=== PATIENT | female | born 1980 | race Caucasian/White ===

== ENCOUNTER 2025-06-08 12:59 | Outpatient (AMB) | payer MEDICARE, SELFPAY ==
[2025-06-08 13:16] VITALS: BP 98/60; PULSE 100; RESP 16; TEMP 36.3; BMI 16.1
--- NOTE | 2025-06-08 13:16 | A.OFFPC_ITS ---
Vital Signs 06/08/25 13:16 Height 5 ft 3 in Weight 91 lb BMI 16.1 BP 98/60 Blood Pressure Location Lt brachial Position Sitting Respiration 16 Pulse 100 Pulse Source Palpation Temp 97.3 F Temp Source Temporal Artery Scan Intake Visit Reasons: reestablish care Chief Of Service Required: No Accompanied by: Mother Allergies shellfish derived (shellfish) Allergy (Severe, Verified 06/08/25 13:25) dizzy, nausea, flushing, tachycardia egg Allergy (Intermediate, Verified 06/08/25 13:25) flushing, lip itching, tachycardia gluten Allergy (Intermediate, Verified 06/08/25 13:25) flushing, GI upset iodine Allergy (Intermediate, Verified 06/08/25 13:25) flushing, GI tract burning Milk Containing Products (Dairy) Allergy (Intermediate, Verified 06/08/25 13:25) flushing, GI upset nuts Allergy (Intermediate, Uncoded 06/08/25 13:25) flushing, lump in throat Medication List - Last Reconciled 06/08/25 by Kaelyn Vanegas MD ascorbate calcium (vitamin C) 500 mg PO DAILY epinephrine (EpiPen) 0.3 mg IM Q10M PRN vitamin D3-vitamin K2 125 mcg (5,000 unit)-100 mcg caps PO DAILY Tobacco use date assessed: 06/08/25 Dental Screening Dental Screen Date: 06/08/25 Did you have a dental visit in the last 12 months?: No Did you have a dental problem in the last 6 months where you did not have access to dental care?: No Was dental information given to patient?: Patient has dentist HPI HPI Comments History of Present Illness Details The patient is a 45-year-old female presenting with the re-establishment of care for management of multiple existing conditions. Telomere Disorder: Family-related disorder will be seeing specialist in [place] if she gets transportation, mother was recently diagnosed Fibroadenoma: Right breast fibroadenoma, also has another mass on right breast- states will be trying to schedule with provider who relocated. Endometrial Polyp: Planned biopsy of polyp to be done by Dr. Anna Fermin's Danlos-stable POTS-unchanged Anemia: Chronic iron deficiency; oral iron ineffective with GI intolerance. Has poor po intake. Dizziness/Headache: Persistent symptoms for several months, notes also occasional sensation that she is off balance. Also notes occipital headache and occasional band like headache, endorses photophobia and vision changes. Vitamin A Deficiency: due for repeat labs Surgical History: - Biopsy of fibroadenoma Social History: - Transportation: Lacks transport, impac ting ability to attend medical appointments - Nutrition: High intake of turkey, chic mattie, difficulty consuming liver for improved iron status - Activity level: Functions limited by d izziness and anemia Review of Systems - General: Reports dizziness, fatigue - Gastrointestinal: Reports bloating, di etary challenges - Neurologic: Reports persistent dizzine ss, visual distortion Physical Exam General: NAD Chest: CTABL. Card: normal s1, s2 Abd: SNTND, +BS Extremities: no edema Neuro: AOX3 Msk: right hand- 3rd digit, at base notable bony prominence compared to previous, no tenderness on exam Assessment and Plan 1. Telomere Disorder - Monitor systemic effects. 2. Anemia - Improve dietary intake; consider IV ir on per recommendations from cemetery counselor. 3. Dizziness with photophobia, vision di sturbances, headache - Obtain MRI, follow up with ophthalmolo gist 4. 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 Protein Calorie Malnutrition- check i josephine studies, vitamin levels, prealbumin 7. Discomfort of finger of right hand-ch ronan xray, monitor Follow up in 3-4 months Patient Instructions - Follow up with specialists as planned - Seek transportation assistance for mickey ointments. - Adjust dietary intake for iron - Monitor for symptoms of anemia or dizz iness. [facility] Medical History (Updated 06/08/25 @ 17:17 by Kaelyn Vanegas MD) Short telomeres for age determined by combined flow cytometry and fluorescence in situ hybridization (FISH) technique Right hand pain Vision changes Photophobia Unilateral headache Occipital headache Dizziness Protein calorie malnutrition Vitamin D deficiency Fibroadenoma Anemia POTS (postural orthostatic tachycardia syndrome) Osteoporosis Mallory-Danlos syndrome Social History Housing: House Patient Tobacco Use Status: Never used Tobacco e-Cigarette/Vaping Use: Never Used service: No Current occupational status: disabled Questionnaire AUDIT C Alcohol Use Questionnaire (AUDIT-C) 1. How often do you have a drink containing alcohol?: Never 3. How often do you have six or more drinks on one occasion?: Never Total Score: 0 Physical exam (Primary Care) Vital Signs: Last Vital Signs Temp 97.3 F 06/08/25 13:16 Pulse 100 06/08/25 13:16 Resp 16 06/08/25 13:16 BP 98/60 06/08/25 13:16 BMI result Body Mass Index 16.1 Tobacco/Smoking Status: Tobacco use Status Tobacco use date assessed 06/08/25 06/08/25 13:27 Patient Tobacco Use Status Never used Tobacco 06/08/25 13:27 e-Cigarette/Vaping Use Never Used 06/08/25 13:27 Coding Level of Care Code Est Pt Level 4 (52817) Complex EM visit Add On G2211 Diagnoses Protein-calorie malnutrition, unspecified severity E46 Protein-calorie malnutrition severity: unspecified severity Iron deficiency anemia secondary to inadequate dietary iron intake D50.8 Anemia type: iron deficiency Iron deficiency anemia type: inadequate dietary iron intake 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 POTS (postural orthostatic tachycardia syndrome) G90.A Photophobia H53.149 Vision changes H53.9 Dizziness R42 Assessment & Plan Assessment & Plan (1) Protein calorie malnutrition: Code(s): E46 - Unspecified protein-calorie malnutrition Category: Medical Qualifiers: Protein-calorie malnutrition severity: unspecified severity Qualified Code(s): E46 - Unspecified protein-calorie malnutrition (2) Anemia: Code(s): D64.9 - Anemia, unspecified Category: Medical Qualifiers: Anemia type: iron deficiency Iron deficiency anemia type: inadequate dietary iron intake Qualified Code(s): D50.8 - Other iron deficiency anemias (3) Mallory-Danlos syndrome: Code(s): 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 - Mallory-Danlos syndrome, unspecified Category: Medical (4) POTS (postural orthostatic tachycardia syndrome): Code(s): G90.A - Postural orthostatic tachycardia syndrome [POTS] Category: Medical (5) Photophobia: Code(s): H53.149 - Visual discomfort, unspecified Category: Medical (6) Vision changes: Code(s): H53.9 - Unspecified visual disturbance Category: Medical (7) Dizziness: Code(s): R42 - Dizziness and giddiness Category: Medical Plan - Check cbc, cmp, nutritional deficiency labs - obtain brain MRI r/o posterior circulation etiology due to persistent symptoms and vision changes Orders: Orders Comprehensive Met. Panel Today D64.9 - Anemia, unspecified, E46 - Unspecified protein-calorie malnutrition, Q79.60 - Mallory-Danlos syndrome, unspecified Complete Blood Count Auto Diff Today D64.9 - Anemia, unspecified, E46 - Unspecified protein-calorie malnutrition, G90.A - Postural orthostatic tachycardia syndrome [POTS], Q79.60 - Mallory-Danlos syndrome, unspecified IRON PROFILE Today D64.9 - Anemia, unspecified, E46 - Unspecified protein- calorie malnutrition, G90.A - Postural orthostatic tachycardia syndrome [POTS], Q79.60 - Mallory-Danlos syndrome, unspecified Ferritin Today D64.9 - Anemia, unspecified, E46 - Unspecified protein-calorie malnutrition, G90.A - Postural orthostatic tachycardia syndrome [POTS], Q79.60 - Mallory-Danlos syndrome, unspecified Vitamin B12 Today E46 - Unspecified protein-calorie malnutrition, G90.A - Postural orthostatic tachycardia syndrome [POTS], Q79.60 - Mallory-Danlos syndrome, unspecified XR hand RT min 3V Today M79.641 - Pain in right hand Vitamin A Today E46 - Unspecified protein-calorie malnutrition Prealbumin Today E46 - Unspecified protein-calorie malnutrition TSH reflex Free T4 Today D64.9 - Anemia, unspecified, E46 - Unspecified protein-calorie malnutrition, G90.A - Postural orthostatic tachycardia syndrome [POTS], M81.0 - Age-related osteoporosis without current pathological fracture, Q79.60 - Mallory-Danlos syndrome, unspecified Folate Today D64.9 - Anemia, unspecified, E46 - Unspecified protein-calorie malnutrition, G90.A - Postural orthostatic tachycardia syndrome [POTS], Q79.60 - Mallory-Danlos syndrome, unspecified MR head/brain wo con Today H53.149 - Visual discomfort, unspecified, H53.9 - Unspecified visual disturbance, R42 - Dizziness and giddiness, R51.9 - Headache, unspecified Vitamin B1 Today E46 - Unspecified protein-calorie malnutrition
--- OUTSIDE RECORDS SUMMARY | 2025-06-08 16:28 | XMS_ITS | Clinical Summary ---
Author Organization [facility] Address [address] [place] [address] Care Team Providers Care Hearing Aid Specialist Name Role Phone Kaelyn Vanegas MD Primary Care Provider [phone] Social History Tobacco Use Types Packs/Day Years Used Date Smoking Tobacco: Never Assessed Comments Unknown Sex and Gender Information Value Date Recorded Sex Assigned at Not on file Legal Sex Female 9:35 AM EDT Gender Identity Not on file Sexual Orientation Not on file Plan of Treatment Health Maintenance Due Date Last Done Comments Hepatitis C Virus Screening 1978 HIV Screening 1991 DTaP/Tdap/Td Vaccines (1 - Tdap) 1997 Hepatitis B Vaccines (1 of 3 - 19+ 3-dose series) 1997 COVID-19 Vaccine ( - 2023-2 5 season) 2025 Pneumococcal Vaccine: Pediat jesusita (0-5 Years) and At-Risk Patients (6 to 49 Years) Aged Out No longer eligible b ased on patient's age to complete this topic Care Teams Hearing Aid Specialist Relationship Specialty Start Date End Date Kaelyn Vanegas MD [address] [place] [address] PCP - General Internal Medicine 06/24/24
--- OUTSIDE RECORDS SUMMARY | 2025-06-08 16:28 | XMS_ITS | Encounter Summary ---
Author Organization [facility] Address [address] [address] Phone Care Team Providers Care Investment Representative Name Role Phone Kaelyn Vanegas MD Primary Care Provider + Kayli Fulton MD Primary Care Provider + Jean Angel MD Unavailable [phone] Cat Dorsey [facility] Unavailable Encounter Details Date Type Department Care Team (Late st Contact Info) Description 11/17/2024 Transcribe Orders Virtual Department [address] [place] [address] Sandi Castillo DO [address] [place] [address] Social History Tobacco Use Types Packs/Day Years Used Date Smoking Tobacco: Never Assessed Education Answer Date Recorded Are you interested in more education? Not on luanne e 12/15/2022 Are you concerned about learning? Not on file 12/15/2022 No 12/15/2022 No 12/15/2022 Digital Access Answer Date Recorded No 01/05/2023 No 01/05/2023 Reliable internet access at home? Not on file 01/05/2023 Device with a working camera? Not on file Comments Unknown Sex and Gender Information Value Date Recorded Sex Assigned at Female 03/07/2025 12:47 PM EDT Legal Sex Female 6:16 PM EST Gender Identity Female 03/07/2025 12:47 PM EDT Sexual Orientation Straight 03/07/2025 12 :47 PM EDT documented as of this encounter Plan of Treatment Upcoming Encounters Date Type Department Care Team (Late st Contact Info) Description 06/13/2025 1:45 PM EST Office Visit [facility] [address] ASB2-2 [address] Jean Angel MD [address] [place] [address] - [place] [address] [address] [email or web address] 10/24/2025 9:00 AM EDT Blood Draw Laboratory Services, [address], [address] [address] Jean Angel MD [address] [place] [address] [email or web address] 10/24/2025 10:00 AM EDT [facility] Division of Hematologic Oncology, [address], [address] [address] Jaen Angel MD [address] [place] [address] [address] [email or web address] documented as of this encounter Visit Diagnoses Not on filedocumented in this encounter Care Teams Investment Representative Relationship Specialty Start Date End Date Kaelyn Vanegas MD [address] [place] [address] PCP - General Internal Medicine 11/04/18 03/06/25 Kayli Fulton MD [address] [place] [address] PCP - General Internal Medicine 03/07/25 Jean Angel MD [address] [place] [address] Cancer [place] - [place] [address] [address] [email or web address] Medical Oncology 03/07/25 Cat Dorsey, [address] [address] [email or web address] Computer Programmer Hematology and Oncology 05/02/25 documented as of this encounter Additional Source Comments The information contained in this document represents components of the legal health record. It is not the complete legal health record.[facility]
--- OUTSIDE RECORDS SUMMARY | 2025-06-08 16:28 | XMS_ITS | Continuity of Care Document ---
Author Organization [facility] [address] [place] [address] Phone [phone] Care Team Providers Care Water Conservationist Name Role Phone Kaelyn Vanegas M.D. 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 Onset: 07/14/2023 Cervical spine instability Kaelyn crane M.D. Onset: 07/14/2023 Osteoporosis Kaelyn Casper M.D. Ons et: 07/14/2023 Multinodular goiter Kaelyn Casper M.D. Onset: 07/14/2023 Postural orthostatic tachyca rdia moustapha Casper M.D. Onset: 07/14/2023 Irritable bowel syndrome Kaelyn Casper M.D. Onset: 07/14/2023 Dysequilibrium syndrome Kaelyn Casper M.D. Onset: 07/14/2023 Myopia Kaelyn Casper M.D. Ons et: 07/14/2023 Social History Type Date Description Comments Sex Female Sex Unknown Lives With Mother Work Status Disabled ETOH Use Denies alcohol use Tobacco Use Start: Unknown Patient has never smoked Allergies and adverse reactions Active Allergies Criticality Reaction Severity Comments Date Gluten Unable to assess criticality 07/14/2023 Povidone Iodine Unable to assess criticality 07/14/2023 Eggs Unable to assess criticality 07/14/2023 Milk-Related Compounds Unable to assess criticality 07/14/2023 Nuts Unable to assess criticality 07/14/2023 Medications Active Medications SIG Qnty Indications Order ing Provider Date Epinephrine0.3mg/0. 3ML Solution Auto-Inject Inject 0.3 MG Intramuscularly Kaelyn Lemus M.D. Vital Signs Date Vital Result Comment 07/14/2023 9:10am BP Systolic 98 mmHg BP Diastolic 64 mmHg Heart Rate 96 /min Height 62 inches 5'2 Weight 103.00 lb BMI (Body Mass Index) 18.8 kg/m2 Medical Devices Description No Information Available Encounters Type Date Location Provider Dx Diagnosis Office Visit 07/14/2023 9:15a Main Office Kaelyn Casper M.D. E04.2 Nontoxic multinodular goiter M81.0 Age-related osteopor osis w/o current pathological fracture Assessments Date Code Description Provider 07/14/2023 E04.2 Nontoxic multinodular goiter Kaelyn Casper M.D. 07/14/2023 M81.0 Osteoporosis NOS Kaelyn Fofana M.D. Plan of Treatment 07/14/2023 - Kaelyn Casper M.D.* E04.2 Nontoxic multinodular goiter * M81.0 Osteoporosis NOS Functional Status Description No Information Available Mental Status Description No Information Available Referrals Description No Information Available
--- OUTSIDE RECORDS SUMMARY | 2025-06-08 16:28 | XMS_ITS | Encounter Summary ---
Author Organization [facility] Address [address] [place] [address] Phone Care Team Providers Care Behavioral Instructor Name Role Phone Kaelyn Vanegas MD Primary Care Provider + Kayli Fulton MD Primary Care Provider + Jean Angel MD Unavailable [phone] Cat Dorsey [facility] Unavailable Reason for Referral * Consultation (Within 1 month) - Closed Specialty Diagnoses / Procedures Referred By Angus hu Referred To Contact Gastroenterology Diagnoses Liver disease Kaelyn Vanegas MD [address] [place] [address] Phone: tel: fax: Paul Gill MD, DPHIL Phone: tel: fax: mailto:[email or web address] Referral ID Status Reason Start Date Expiration Date Visits Re quested Visits Authorized [id number] Closed 11/30/2018 12/01/2019 1 1 Encounter Details Date Type Department Care Team (Latest Contact Info) Description 11/30/2018 Transcribe Orders [facility] [address] [place] [address], [address]th [place] [address] Kaelyn Vanegas MD [address] [place] [address] Liver disease (Primary Dx) Social History Tobacco Use Types Packs/Day Years [...] Description 06/13/2025 1:45 PM EST Office Visit [facility] [address] [facility] [place] [place] [address] Jean Angel MD [address] [place] [phone] [email or web address] 10/24/2025 9:00 AM EDT Blood Draw Laboratory Services, [address] [place] [address] Jean Angel MD [address] [place] [phone] [email or web address] 10/24/2025 10:00 AM EDT Office Visit [facility], Division of Hematologic Oncology, [address] [place] [address] Jean Angel MD [address] [place] [phone] [email or web address] Scheduled Referrals Name Type Priority Associated Diagnoses Order Schedule Ambulatory referral to [facility] Gastroenterology (Consult Requests Only) Outpatient Referral Routine Liver disease Ordered: 11/30/2018 documented as of this encounter Visit Diagnoses Diagnosis Liver disease- Primary Unspecified disorder of liver documented in this encounter Care Teams Behavioral Instructor Relationship Specialty Start Date End Date Kaelyn Vanegas MD [address] [place] [address] PCP - General Internal Medicine 11/04/18 03/06/25 Kayli Fulton MD [address] [place] [address] PCP - General Internal Medicine 03/07/25 Jean Angel MD [address] [place] [address] Cancer [place] [address] [address] [email or web address] Medical Oncology 03/07/25 Cat Dorsey, [address] [address] [email or web address] Senior Health Educator Hematology and Oncology 05/02/25 documented as of this encounter Additional Source Comments The information contained in this document represents components of the legal health record. It is not the complete legal health record.[facility]
--- OUTSIDE RECORDS SUMMARY | 2025-06-08 16:28 | XMS_ITS | Data Portability ---
Author Organization [place] - [facility] Address [address] [place] [address] Care Team Providers Care Gymnastic Teacher Name Role Phone ANA CANTU Primary Care Provider [phone] Assessment Encounter Date Assessment Date Assessment LastModified by Organization Details LastModified Time 03/19/2023 03/19/2023 Time On Scene with Patient: 00:50:13 Brief Overview: 43 y/o female c/o she has not been eating well the past 2 days as her mother fell, and her mom usually cooks for her so pt states she has not been eating. pt ate small amount of rice today, she is tolerating po fluids. no fever, nausea, vomiting or diarrhea. pt reports she feels tired and weak since she has not been eating. she states she is not urinating as much as normal. she denies any pain, no cough, congestion, cp, sob. pt has Gaffney and reports when she feels like this she gets IV fluids at the ER. she has chronic dizziness, intermittent palpitations, pvc's and is followed by cardiology none of these are new symptoms for her. I have reviewed the external medical records:[employer] lab/imaging reports from (hospital system/practice) ____[facility] , on (date of service) ____01/28/23____. Specifically, the data/test result/record I reviewed was: cbc, chem . Vital Signs: BP 116/66, initially tachycardic rate 110, repeat HR 98, RR 18, T 99.2, O2 97% RA Exam: 43 y/o female well appearing, alert NAD sitting on her couch. lungs: CTAB no wheezes rales or rhonchi. heart: initially tachycardic at beginning of visit, but repeat HR 98, RRR no murmur rubs or gallops. no peripheral edema. abdomen: non distended, normal bowel sounds, soft, non tender. no suprapubic tenderness, no CVA tenderness. strength is normal and equal bilaterally. gait and stance is normal. mouth: moist mucous membranes no erythema. skin: warm and dry no rashes or lesions. pt is drinking from water bottle during the visit and tolerating PO. DDx considered, with rationale: Dehydration: considered but VS stable, UA SG is 1.005, clear and yellow. pt was able to produce a full cup of urine on scene, when asked for a sample. BUN, Creat wnl. UTI: considered but she is afebrile, denies any dysuria, frequency, urgency. UA is unremarkable. Sepsis: considered but she is afebrile, VS stable, she does not appear septic. Results/ work up: Lactate: 1.83, within normal limits. Chem: Na 138, K 4.1, Cl 98, iCa 1.21, TCO2 25, glu 111, BUN <0.5, Creat 0.5, HCT 36, HGB 12.2, AnGap 20. CBC from 01/28/23 shows HCT 34.1, HGB 10.4. H&H has improved. chem from 01/28/23 shows BUN 12, Creat 0.9, Na 139, K 3.9, GFR 85. UA: SG 1.005, otherwise unremarkable. Proper Personal Protective Equipment (PPE), including gloves, eye protection and masks were donned and doffed appropriately and all equipment cleaned using approved technique with germicidal disposable wipes prior to and after care of this patient according to [facility]'s infection prevention protocols. [email or web address] Not available 03/19/2023 18:47:52 Plan of Treatment Reminders Order Date Submit Date Provider Last Modified By Organization Details Last Modified Time Details Appointments None recorded. Lab urinalysis , dipstick 2022 023 [email or web address] [facility], [address] [place] [address], [id number], 3 19:02:43 BMP + ionized calcium, serum or plasma 2022 023 CANDY Spr [facility], [address], [place], [address], 15:44:03 lactate, venous plasma 2022 023 CANDY Richards [facility], [address], [place], [address], 3 15:43:03 Referral None recorded. Procedures None recorded. Surgeries None recorded. Imaging None recorded. Medication Orders None recorded. Patient TargetsNo targets recorded. Patient Instructions Encounter Date Encounter Id Patient Instructions Last Modified By Organization Details Last Modified Time 03/19/2023 [id number] [facility] yo [facility]. We cannot always find the exact cause of your symptoms during your initial visit. Please follow up with your primary care provider or specialist within 12-24 hours to be rechecked or seek medical attention if your symptoms do not go away or get worse. If you develop any new or worsening symptoms and need after hours care, please go to nearest ER and/or call 911. If you have additional concerns or develop a change in your condition between 8am-10pm, please call [facility] at [phone] to help navigate your care. [email or web address] Not available 03/19/2023 19:02:55 Lab ResultsCG4+ iStat lac: 1.83mmol/L ref: 0.9-1.7 Lab ResultsBMP + ionized calcium, serum or plasma BUN: <5mg/dL ref: 8-26 glu: 111mg/dL ref: 70-105 crea: 0.5mg/dL ref: 0.6-1.3 Na: 138mmol/L ref: 138-146 K: 4.1mmol/L ref: 3.5-4.9 cL: 98mmol/L ref: 98-109 TCO2: 25mmol/L ref: 24-29 angap: 20mmol/L ref: 10-20 ica: 1.21mmol/L ref: 1.12-1.32 HCT: 36%pcv ref: 38-51 Hb: 12.2g/dL ref: 12-17 [email or web address] Not available 03/19/2023 15:45:03 Reason for Referral None Reported. Results Created Date Observation Date Name Description Value Unit Range Abnormal Flag Note LastModifiedBy Organization Detail LastModifiedTime 03/19/2003/19/2023 urina lysis , dipst ick Appearance clear Not Available [facility] [address] [place], [address], 03/19/2023 15:23:27 03/19/20 23 03/19/2023 urina lysis , dipst ick Color yellow Not Available [facility] [address] [place], [address], 03/19/2023 15:23:27 03/19/2003/19/2023 urina lysis , dipst ick Glucose (ref: neg) Neg Not Available [facility] [address] [place], [address], 03/19/2023 15:23:27 03/19/20 23 03/19/2023 urina lysis , dipst ick Bilirubin (ref: neg) Neg Not Available [facility] [address] [place], [address], 03/19/2023 15:23:27 03/19/20 23 03/19/2023 urina lysis , dipst ick Ketones (ref: neg Neg Not Available [facility] [address] [place], [address], 03/19/2023 15:23:27 03/19/20 23 03/19/2023 urina lysis , dipst ick Specific Theodosia (ref: 1.005 - 1.030) 1.005 Not Available [facility] [address] [place], [address], 03/19/2023 15:23:27 03/19/20 23 03/19/2023 urina lysis , dipst ick Blood (ref: neg) Neg Not Available [facility] [address] [place], [address], 03/19/2023 15:23:27 03/19/20 23 03/19/2023 urina lysis , dipst ick pH (ref: 5.0-7.0 5.0 Not Available [address], [address], 03/19/2023 15:23:27 03/19/20 23 03/19/2023 urina lysis , dipst ick Protein (ref: neg) Neg Not Available [address], [address], 03/19/2023 15:23:27 03/19/20 23 03/19/2023 urina lysis , dipst ick Urobilinogen (ref: 0.2-1) 0.2 Not Available [address], [address], 03/19/2023 15:23:27 03/19/20 23 03/19/2023 urina lysis , dipst ick Nitrites (ref: neg negati ve Not Available [address], [address], 03/19/2023 15:23:27 03/19/20 23 03/19/2023 urina lysis , dipst ick Leukocytes (ref: neg Neg Not Available [address], [address], 03/19/2023 15:23:27 03/19/20 23 03/19/2023 urina lysis , dipst ick Location [facility], [facility], [address] [place] [address], [phone] Not Available [address], [address], 03/19/2023 15:23:27 03/19/20 23 03/19/2023 BMP + IONIZ ED CALCI UM, SERUM OR PLASM A BUN <5 mg/dL 8-26 unknown Not Available [facility] [address] [place], [address], 03/19/2023 15:44:03 03/19/20 23 03/19/2023 BMP + IONIZ ED CALCI UM, SERUM OR PLASM A glu 111 mg/dL 70-105 Not Available [address], [address], 03/19/2023 15:44:03 03/19/20 23 03/19/2023 BMP + IONIZ ED CALCI UM, SERUM OR PLASM A crea 0.5 mg/dL 0.6-1. 3 Not Available [address], [address], 03/19/2023 15:44:03 03/19/20 23 03/19/2023 BMP + IONIZ ED CALCI UM, SERUM OR PLASM A Na 138 mmol/ L 138-14 6 Not Available [address], [address], 03/19/2023 15:44:03 03/19/20 23 03/19/2023 BMP + IONIZ ED CALCI UM, SERUM OR PLASM A K 4.1 mmol/ L 3.5-4. 9 Not Available [address], [address], 03/19/2023 15:44:03 03/19/20 23 03/19/2023 BMP + IONIZ ED CALCI UM, SERUM OR PLASM A cL 98 mmol/ L 98-109 Not Available [address], [address], 03/19/2023 15:44:03 03/19/20 23 03/19/2023 BMP + IONIZ ED CALCI UM, SERUM OR PLASM A TCO2 25 mmol/ L 24-29 Not Available [address], [address], 03/19/2023 15:44:03 03/19/20 23 03/19/2023 BMP + IONIZ ED CALCI UM, SERUM OR PLASM A angap 20 mmol/ L 10-20 Not Available [address], [address], 03/19/2023 15:44:03 03/19/20 23 03/19/2023 BMP + IONIZ ED CALCI UM, SERUM OR PLASM A ica 1.21 mmol/ L 1.12-1 .32 Not Available [address] [place], [address], 03/19/2023 15:44:03 03/19/20 23 03/19/2023 BMP + IONIZ ED CALCI UM, SERUM OR PLASM A HCT 36 %pcv 38-51 Not Available [address], [address], 03/19/2023 15:44:03 03/19/20 23 03/19/2023 BMP + IONIZ ED CALCI UM, SERUM OR PLASM A Hb 12.2 g/dL 12-17 Not Available [address], [address], 03/19/2023 15:44:03 03/19/20 23 03/19/2023 CG4+ ISTAT lac 1.83 mmol/ L 0.9-1. 7 Not Available [address], [address], 03/19/2023 15:43:02 Result Notes None recorded. Procedures Surgical History Date Name Laterality Status Provider Name and Address Organization Details Recorded Time 03/19/20 Venipuncture - DH completed MEENA Arthur [address] [place], [address], [place] [facility] 03/19/2023 18:41:21 Appendectomy completed MEENA Arthur [address] [place], [address], [place] [facility] 03/19/2023 15:12:56 Imaging Results None recorded. Procedure Notes None recorded. Medical Equipment None Reported. Allergies Allergen ID Allergen Name Allergen Category Reaction Reaction Severity Criticality Documentation Date Start Date Code Code System Note Provider Name and Address Organization Details Recorded Time 973510 iodine medicatio n Not available Not available Not available 03/19/2023 5933 RxNorm MEENA Arthur [address] [place], [address], [place] [facility] 15:10:30 245210 Substance with quinolone structure and antibacte rial mechanism of action (substanc e) medicatio n Not available Not available Not available 03/19/2023 19922 1999 SNOMED MEENA Arthur [address] [facility] [place], [address], [place] [facility] 15:10:40 Medications Name Sig Start Date Stop Date Status Note LastModified by Organization Details LastModified Time epinephrine 0.3 mg/0.3 mL injection, auto-injecto r INJECT 0.3 MG INTRAMUSCUL KIA ONCE active Not Available Not Available No t Available Flowflex COVID-19 Antigen Home Test kit USE DIRECTED active Not Available Not Available No t Available Vitals Date Recorded Respiratory rate Oxygen saturation Oxygen saturation in Arterial blood by Pulse oximetry Body temperature Heart rate Systolic And Diastolic Provider Name and Address Organization Details Last Updated DateTime 18 /min 97 % 97 % 99.2 [degF] 110 /min 116/66 mm[Hg] Not Available [facility] 15:14:55 Social History Question Answer Notes LastModified by Organizat ion Details LastModified Time Tobacco Smoking Status Never Smoker MEENA Arthur [address], [place], [address], [place] [facility] 03/19/2023 15:12:08 Excessive Alcohol Or Drug Use No [email or web address] Information not available 03/19/2023 Does This Patient Have A PCP? Yes [email or web address] Information not available 03/19/2023 Has The Patient Seen Their PCP In The Past 6 Months? Yes [email or web address] Information not available 03/19/2023 Is This Patient In Hospice? No Information not available 03/19/2023 What Is Your Housing Situation Today? I Have Housing Information not available 03/19/2023 Sex: Unknown Functional Status Question Answer Note LastModified by Organizat ion Details LastModified Time Do you use any illicit or recreational drugs? No Information not available 03/19/2023 What is your level of alcohol consumption? None Information not available 03/19/2023 Mental Status None recorded. Family History Relationship Description Onset Age of this Age Resolved Age Notes LastModified by Organization Details LastModified Time Father Diabetes mellitus [email or web address] Not available 03/19 15:11:34 Medical History Condition Response Diabetes N Coronary Artery Disease N CHF N Parkinson's Disease N Cancer N Stroke N Dementia N Hypothyroidism N COPD N Asthma N Depression N High Cholesterol N Rheumatoid Arthritis N Pulmonary Embolism N Hypertension N A-fib N Osteoporosis N Kidney Disease N Gynecological HistoryNo gynecological history recorded. Obstetrics History GPAL:G 0 P 0 0 0 0 Past Encounters Encounter ID Performer Location Encounter Start Date Encounter Closed Date Diagnosis/Indication Diagnosis SNOMED-CT Code Diagnosis ICD10 Code Diagnosis IMO Codes Diagnosis Note [id number] MEENA Arthur [facility] [address] [place] [address] 03/19/2023 15:08:39 03/20/2023 16:20:53 Fatigue 57507650 R53.83 Status of condition: Exacerbati on/Acute on chronic. Testing/Re sults: UA unremarkab le, SG 1.005, chem Na 138, K 4.1, BUN <5, creat 0.5, HCT 36, HGB 12.2. Discussion :pt has had poor diet the past 2 days, eating very little since her mother is not cooking for her.she is tolerating PO fluids on scene, drinking from water bottle during the visit.she denies any vomiting, diarrhea. she has chronic fatigue and chronic dizziness, these are not new symptoms.p t was able to provide a full cup of urine on scene when we asked for a sample, SG 1.005 no signs of infection, negative for bili or ketones.he r chem on scene today shows improved anemia since H&H last checked in January 2023. electrolyt es and lactate within normal limits.pt was demanding IV fluids on scene. I explained to her that her labs, urine look good. she is tolerating PO without vomiting, diarrhea. pt was still upset and stating I called you here for IV fluids. kari diane I explained to her fluids are given when medically necessary. right now her vitals are stable, chem and urine are within normal limits.I advised her to continue to drink fluids, rest and be sure to eat regular meals.pt was unhappy and states she has no food that she can eat due to her food allergies/ sensitivit ies- so she will not be eating.At this point I advised her if she is not going to eat or drink fluids than I advise she go to the ER as this will likely end up worsening her chronic conditions already. pt is refusing ER evaluation and refused to sign AMA form on scene. [facility] was present and witnessed discussion and pt's refusal to sign ama. Plan, Medication Management & Follow-up recommenda tions:foll ow up with pcp tomorrow.g o to the ER with any worsening symptoms cp, sob, increased dizziness, vomiting, fever, diarrhea, abdominal pain, palpitatio ns, lethargy.o f note when we left pt's house she was still sipping on water from her water bottle. Health Concerns Section Related Observation LastModified by Organization Detai ls LastModified Time None Recorded Concern Status LastModified by Organization Details LastModified Time None Recorded Advance Directives Directive None Recorded Payers Insurance Date Sequence Insurance Name Policy Number Policy Henry Covered Member ID Henry Member ID Guarantor Name 03/23/2023 2 [place] [id number] Evangelina Colon [id number] Evangelina Colon 03/23/2023 2 [place]MEDICARE [place]PLACEMENT HMO) [id number] Evangelina I Colon [id number] Evangelina Colon 03/20/2023 1 [place] [employer] Evangelina I Colon [id number] Evangelina Colon 04/09/2023 2 [place]PPLE[place]) [id number] Evangelina Colon [id number] Evangelina Colon 03/18/2023 1 *SELF PAY* Evangelina Colon [id number] Evangelina Adkins Notes Date Note Type Note Provider Name and Address Organization Details Recorded Time 03/19/2023 text/html General HPI Temp late - DHReported by Patient 43 y/o female new to and provider with hx of Ehler's danlos syndrome, vitamin d deficiency, folic acid deficiency, chronic fatigue, IBS, palpitations, anemia, weight loss, osteoporosis, chronic dizziness, cervicocranial syndrome, dysautonomia, chronic generalized pain. pt reports she has not been feeling well the past 2 days states her mom fell and she has been taking care of her. her mom usually cooks so pt states she has not been eating much of anything. she is drinking water but feels like she may be dehydrated as she is not urinating as much as normal. no dysuria, frequency, urgency, fever, cp, sob, abdominal pain, nausea, vomiting. pt has IBS and stools are loose no change. she has chronic dizziness and states if her diet is poor that can affect her symptoms. she is followed by cardiology for her palpitations and PVCs. MEENA Arthur [address] [place], [address], [place] [facility] 03/19/2023 19:03:14 OBGyn Episode No OBEpisode recorded.
--- OUTSIDE RECORDS SUMMARY | 2025-06-08 16:29 | XMS_ITS | Clinical Summary ---
Author Organization [facility] Address [address] [place] [address] Care Team Providers Care Plating Technician Name Role Phone Kaelyn Vanegas MD Primary Care Provider [phone] Surgical History Surgery Date Site/Laterality Comments APPENDECTOMY 2006 PROCEDURE: HISTORICAL APPENDECTOMY; COMMENT: complicated with abscess Medical History Medical History Date Comments Anemia DX:Anemia B12 deficiency DX:B12 deficienc y Cervicocranial syndrome DX:Cervi cocranial syndrome Change in consistency of stool D X:Change in consistency of stool Chronic fatigue DX:Chronic fatig ue Chronic generalized pain DX:Carrier Blower sarai generalized pain Depression DX:Depression Dizziness DX:Dizziness Dysautonomia (CMS/HCC V24, CMS/HCC V28) DX:Dysautonomia (HCC) Mallory-Danlos syndrome DX:Mallory -Danlos syndrome Epigastric pain DX:Epigastric pa in Folic acid deficiency DX:Folic a theodore deficiency Gluten intolerance DX:Gluten int olerance Hepatic cyst DX:Hepatic cyst IBS (irritable bowel syndrome) D X:IBS (irritable bowel syndrome) Malnutrition (CMS/HCC V24) DX:Ma lnutrition ([facility]) Mast cell disorder DX:Mast cell disorder Osteoporosis DX:Osteoporosis Vitamin C deficiency DX:Vitamin C deficiency Family History Medical History Relation Name Comments Diabetes Brother 1 Mellitus, Type II Hypertension Brother 1 Diabetes Brother 2 Mellitus, Type II Hypertension Brother 2 Diabetes Father Mellitus, Type II Hypertension Father Stomach cancer Father Osteoporosis Mother Other: Blood Clot Mother Other: Mallory-Danlos Disease Mother Prostate cancer Other Grandfather Relation Name Status Comments Brother 1 Brother 2 Father Mother Other Grandfather Social History Tobacco Use Types Packs/Day Years Used Date Smoking Tobacco: Never Smokeless Tobacco: Never Alcohol Use Standard Drinks/Week Comments No 0 (1 standard drink = 0.6 oz pur e alcohol) Comments Unknown Sex and Gender Information Value Date Recorded Sex Assigned at Not on file Legal Sex Female 1:56 PM EST Gender Identity Not on file Sexual Orientation Not on file Obstetrics History Last Filed Vital Signs Vital Sign Reading Time Taken Comments Blood Pressure 110/70 02/02/2024 2:47 PM EDT Sitting R Arm Pulse 90 02/02/2024 2:47 PM EDT Temperature - - Respiratory Rate - - Oxygen Saturation - - Inhaled Oxygen Concentration - - Weight 41.9 kg (92 lb 4.8 oz) 2:47 PM EDT Height 157.5 cm (5' 2 ) 02/02/2024 2:47 PM EDT Body Mass Index 16.88 02/02/2024 2:47 PM EDT Plan of Treatment Health Maintenance Due Date Last Done Comments Breast Cancer Screening 1978 Colorectal Cancer Screening: Colonoscopy 1978 DTaP,Tdap,and Td Vaccines (1 - Tdap) 1997 Hepatitis A Vaccines (1 of 2 - Risk 2-dose series) 1997 Hepatitis B Vaccines (1 of 3 - 19+ 3-dose series) 1997 Cervical Cancer Screening: P ap Smear 1999 Cholesterol Screening (Lipid Panel) 07/21/2022 HIV Screening 07/21/2022 Hepatitis C Screening 07/21/2022 Social Influencers of Health Screening 07/21/2022 Depression Screening 08/11/2024 COVID-19 Vaccine ( - 2023-2 5 season) 2025 Influenza Vaccine (#1) 2025 RSV Immunization Adult Patie nts (1 - 1-dose 75+ series) 2053 HIB Vaccines Aged Out No longer eligi ble based on patient's age to complete this topic HPV Vaccines Aged Out No longer eligi ble based on patient's age to complete this topic IPV Vaccines Aged Out No longer eligi ble based on patient's age to complete this topic MMR Vaccines Aged Out No longer eligi ble based on patient's age to complete this topic Meningococcal ACWY Vaccine Aged Out N o longer eligible based on patient's age to complete this topic Meningococcal B Vaccine Aged Out No l onger eligible based on patient's age to complete this topic Pneumococcal Vaccine: Pediat rics (0 to 5 Years) and At-Risk Patients (6 to 49 Years) Aged Out No longer eligible b ased on patient's age to complete this topic RSV Immunization Patients Un elma 20 months Aged Out No longer eligible b ased on patient's age to complete this topic Varicella Vaccines Aged Out No longer eligible based on patient's age to complete this topic Care Teams Plating Technician Relationship Specialty Start Date End Date Kaelyn Vanegas MD [address] [place] [address] PCP - General 02/18/13
--- OUTSIDE RECORDS SUMMARY | 2025-06-08 16:29 | XMS_ITS ---
Author Name [facility] Organization Unknown Problems Problem Status Onset Date Problem Type Date of Resoluti on Source Ocular migraine active EncounterDiagnosisAct [facility] Visual disturbances active EncounterDiagnosisAc t [facility] Dizzy active EncounterDiagnosisAct [facility]
--- OUTSIDE RECORDS SUMMARY | 2025-06-08 16:29 | XMS_ITS | Encounter Summary ---
Author Organization [facility] Address [address] [address] Phone Care Team Providers Care Ladle Handler Name Role Phone Kayli Fulton MD Primary Care Provider + Jean Angel MD Unavailable [phone] Cat Dorsey [facility] Unavailable Reason for Visit * Reason Onset Date Comments appt change 03/08/2025 Encounter Details Date Type Department Care Team (Late st Contact Info) Description 03/08/2025 Telephone [facility] Genetics [address] [place] [address] Belle Diamond MD [address] [place] [phone] [email or web address] appt change Social History Tobacco Use Types Packs/Day Years [...] PM EDT documented as of this encounter Progress Notes * Siomara Eunice Laureen - 03/08/2025 8:25 AM EDT (Note to care team coordinator scheduler: Check the encounters to confirm if there are scheduling instructions from the clinic) (Note to care team coordinator scheduler: If the patient provides times they are not available document the date range) Appointment type: New patient If new, name of referring provider or is the patient self referred?: If new, what is the DX?: 2. Requested timeframe?: Other 3. What is the name of the provider the patient is requesting to be scheduled with? Dr. Laguna 4. Date of the patients current appointment (if scheduled): 03/14/25 Pt is requesting to complete new pt appt as a VV due to transportation issues. 5. Has the appointment been added to the wait list?: No 6. If an appointment was not scheduled what was the reason?: N/A Evangelina Adkins Telephone Information: Work Phone Not on file. documented in this encounter Plan of Treatment Upcoming Encounters Date Type Department Care Team (Late st Contact Info) Description 06/13/2025 1:45 PM EST Office Visit [facility] 45 [facility]2-2 [place] [address] Jean Angel MD [address] [place] [address] - [address] [phone] [email or web address] 10/24/2025 9:00 AM EDT Blood Draw Laboratory Services, [address] 2nd [place] [address] Jean Angel MD [address] [place] [address] [address] [email or web address] 10/24/2025 10:00 AM EDT Office Visit [facility] Division of Hematologic Oncology, [address], [address] [place] [address] Jean Angel MD [address] [place] [address] [phone] [email or web address] documented as of this encounter Visit Diagnoses Not on filedocumented in this encounter Care Teams Ladle Handler Relationship Specialty Start Date End Date Kayli Fulton MD [address] [place] [address] PCP - General Internal Medicine 03/07/25 Jean Angel MD [address] [place] [phone] [email or web address] Medical Oncology 03/07/25 Cat Dorsey, [address] [address] [email or web address] News Director Hematology and Oncology 05/02/25 documented as of this encounter Additional Source Comments The information contained in this document represents components of the legal health record. It is not the complete legal health record.[facility]
--- OUTSIDE RECORDS SUMMARY | 2025-06-08 16:29 | XMS_ITS | Encounter Summary ---
Author Organization [facility] Address 399 [facility] [address] [place] [address] Phone Care Team Providers Care Medical Service Representative Name Role Phone Kayli Fulton MD Primary Care Provider + Jean Angel MD Unavailable [phone] Cat Dorsey [facility] Unavailable Reason for Referral * Outpatient Procedure - Authorized Specialty Diagnoses / Procedures Referred By Anugs hu Referred To Contact Radiology Diagnoses Mass of right breast, unspecified quadrant Abnormal finding on breast imaging Procedures PRISON Biopsy of Breast (Right) Sandi Castillo DO [address] [place] [address] Phone: tel: Referral ID Status Reason Start Date Expiration Date V isits Requested Visits Authorized [id number] Authorized 06/03/2025 1 1 Encounter Details Date Type Department Care Team (Late st Contact Info) Description 06/03/2025 Transcribe Orders Virtual Department [address] [place] [address] Sandi Castillo DO [address] [place] [address] Mass of right breast, unspecified quadrant (Primary Dx); Abnormal finding on breast imaging Social History Tobacco Use Types Packs/Day Years Used Date Smoking Tobacco: Never Smokeless Tobacco: Never Alcohol Use Standard Drinks/Week Comments Not Currently 0 (1 standard drink = 0.6 oz pur e alcohol) Education Answer Date Recorded Are you interested [...] 06/13/2025 1:45 PM EST Office Visit [facility] 45 [facility]2 [place] [address] Jean Angel MD [address] [place] [phone] [email or web address] 10/24/2025 9:00 AM EDT Blood Draw Laboratory Services, [address] 2nd [place] [address] Jean Angel MD [address] [place] [phone] [email or web address] 10/24/2025 10:00 AM EDT Office Visit [facility], Division of Hematologic Oncology, [address], [address]th [place] [address] Jean Angel MD [address] [place] [phone] [email or web address] Scheduled Orders Name Type Priority Associated Diagnoses Orde r Schedule PRISON Biopsy of Breast (Right) Imaging Routine Mass of right breast, unspecified quadrant Abnormal finding on breast imaging Expected: 06/03/2025, Expires: 06/03/2026 documented as of this encounter Visit Diagnoses Diagnosis Mass of right breast, unspecified quadrant- Primary Abnormal finding on breast imaging documented in this encounter Care Teams Medical Service Representative Relationship Specialty Start Date End Date Kayli Fulton MD [address] [place] [phone] PCP - General Internal Medicine 03/07/25 Jean Angel MD [address] [place] [address] Cancer [place] - [place] [address] [address] [email or web address] Medical Oncology 03/07/25 Cat Dorsey, [address] [address] [email or web address] Senior Pharmacy Technician Hematology and Oncology 05/02/25 documented as of this encounter Additional Source Comments The information contained in this document represents components of the legal health record. It is not the complete legal health record.[facility]
--- OUTSIDE RECORDS SUMMARY | 2025-06-08 16:29 | XMS_ITS | Clinical Summary ---
Author Organization [facility] Address [address] [address] Phone Care Team Providers Care Assistant Merchandise Manager Name Role Phone Kayli Fulton MD Primary Care Provider + Jean Angel MD Unavailable [phone] Cat Dorsey [facility] Unavailable Allergies Active Allergy Reactions Criticality Noted Date Comments Egg Extract 03/13/2025 Fish Derived 03/13/2025 Gluten GI Upset,Hives 03/13/2025 Iodine 03/13/2025 Tree Nuts 03/13/2025 Active Problems Problem Noted Date Diagnosed Date POTS (postural orthostatic tachycardia syndrome) 03/10/2025 Other osteoporosis without current pathological fracture 03/10/2025 Familial idiopathic pulmonary fibrosis Acid reflux 03/10/2025 Anemia 03/10/2025 B12 deficiency 03/10/2025 Celiac disease 03/10/2025 Dizziness 03/10/2025 Dysautonomia 03/10/2025 Epigastric pain 03/10/2025 Fatigue 03/10/2025 Hepatic cyst 03/10/2025 Malnutrition 03/10/2025 Scoliosis 03/10/2025 Underweight 03/10/2025 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 Irritable bowel syndrome 07/14/2023 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 Multinodular goiter 07/14/2023 Encounters Date Type Department Care Team Description 06/03/2025 Transcribe Orders [facility] Department [address] [place] [address] Sandi Castillo DO Mass of right breast, unspecified quadrant (Primary Dx); Abnormal finding on breast imaging 05/31/2025 3:30 PM EDT Social Work Social Work Department, [facility] [address] [place] [address] Jean Angel MD Katsetos, Kristy Ana Maria [facility] 05/19/2025 Documentation [facility] [address] [place] [address] Laura Ortega, RN biopsy recommendation 05/18/2025 2:34 PM EDT - 05/18/2025 11:59 PM EDT Hospital Encounter [address] [address] Sandi Castillo DO Discharge Disposition: Home or Self Care 04/12/[address] [place] [address] Jean Angel MD 04/07/2025 Orders Only [facility], Division of Hematologic Oncology, [facility] [place] [address] [facility], 8th [place] [address] Jean Angel MD Familial idiopathic pulmonary fibrosis (Primary Dx); 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; Other osteoporosis without current pathological fracture 03/14/2025 11:00 AM EDT Telemedicine [facility] Genetics [address] [place] [address] Belle Diamond MD Family history of genetic disease (Primary Dx); Mild reactive airways disease, unspecified whether persistent; Mast cell activation syndrome; POTS (postural orthostatic tachycardia syndrome) 03/08/2025 Telephone [facility] Genetics [address] [place] [address] Belle Diamond MD appt change 11/18/2024 Procedure Pass [address] [address] from Last 3 Months Family History Medical History Relation Comments Pulmonary fibrosis Maternal Aunt Pulmonary fibrosis Maternal Grandmother Pulmonary fibrosis Mother Relation Status Comments Maternal Aunt Maternal Grandmother Mother Social History Tobacco Use Types Packs/Day Years Used Date Smoking Tobacco: Never Smokeless Tobacco: Never Tobacco Cessation:Counseling Given: Not Answered Alcohol Use Standard Drinks/Week Comments Not Currently [...] Orientation Straight 03/07/2025 12 :47 PM EDT Last Filed Vital Signs Vital Sign Reading Time Taken Comments Blood Pressure 96/65 11/01/2011 3:24 PM EDT Pulse 72 11/01/2011 3:24 PM EDT Temperature - - Respiratory Rate - - Oxygen Saturation - - Inhaled Oxygen Concentration - - Weight 46.3 kg (102 lb 1.6 oz) 11/01/2011 3:24 P M EDT Height - - Body Mass Index - - Plan of Treatment Upcoming Encounters Date Type Department Care Team (Late st Contact Info) Description 06/13/2025 1:45 PM EST Office Visit [facility] Medical Specialties 45 [facility]2-2 [place] [address] Jean Angel MD [address] [place] [phone] [email or web address] 10/24/2025 9:00 AM EDT Blood Draw Laboratory Services, [address] 2nd [place] [address] Jean Angel MD [address] [place] [phone] [email or web address] 10/24/2025 10:00 AM EDT Office Visit [facility], Division of Hematologic Oncology, [facility] [address]th [place] [address] Jean Angel MD 450 [facility] [address] [place] [address] [email or web address] Health Maintenance Due Date Last Done Comments Adult Td,Tdap Booster 1978 DEPRESSION SCREENING 1990 HEPATITIS C SCREENING 1996 HIV ONE-TIME SCREENING (18-6 5 YEARS) 1996 PNEUMOCOCCAL VACCINES (0-49 years) (1 of 2 - PCV) 1997 PAP SMEAR 1999 LIPID PANEL 08/23/2016 08/23/2011 COLOGUARD 2023 COLONOSCOPY 2023 COLORECTAL CANCER SCREENING 2023 FIT TEST 2023 FOBT 2023 SIGMOIDOSCOPY 2023 VIRTUAL COLONOSCOPY 2023 INFLUENZA VACCINE (#1) 2025 COVID-19 VACCINE (1 - 2024-2 6 season) 2025 MAMMOGRAM 08/26/2026 08/26/2024 SMOKING STATUS SCREENING (On ce After 26 Yrs) Completed 03/13/2025 HEPATITIS A VACCINES Aged Out No long er eligible based on patient's age to complete this topic HIB VACCINES Aged Out No longer eligi ble based on patient's age to complete this topic MENINGOCOCCAL VACCINES (ACWY) Aged Out No longer eligible based on patient's age to complete this topic MENINGOCOCCAL VACCINES (B) Aged Out N o longer eligible based on patient's age to complete this topic Medical Devices Not on file Procedures Procedure Name Priority Date/Time Associated Diagnosis Comments BI US BREAST LIMITED (RIGHT) Routine 05/18/2025 3:37 PM EDT Other abnormal and inconclusive findings on diagnostic imaging of breast BI MAMMOGRAM OUTSIDE (NO INTERPRETATION) Routine 08/26/2024 12:05 AM EST HISTORICAL LAB Routine 08/23/2011 5:27 PM EST from Last 3 Months or Most Recently Relevant to Health Maintenance Results * (ABNORMAL) BI US BREAST LIMITED (RIGHT) (05/18/2025 3:37 PM EDT) Anatomical Region Laterality Modality Breast Right, Breast Bilateral Right U ltrasound 05/18/2025 3:47 PM EDT Impressions 05/18/2025 4:45 PM EDT 1. Interval increase in size of the indeterminate right breast mass at the 4:00 position. The recommendation stands for an ultrasound-guided biopsy. 2. 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 No additional imaging follow-up for this finding is recommended. BI-RADS 4 SUSPICIOUS Results and recommendations were communicated to the patient at time of examination. The breast imaging department will assist the patient in scheduling the recommended procedure. Narrative 05/18/2025 4:45 PM EDT BI US BREAST LIMITED (RIGHT) Additional patient information: 6 month follow-up of a biopsy-proven benign right breast fibroadenoma (the patient declined clip placement at the time of biopsy) and right breast mass at 4:00. The patient previously declined a biopsy of the right breast mass at 4:00 and elected for short term follow-up. TECHNIQUE: Targeted right breast ultrasound was performed. COMPARISON: Comparison is made with relevant prior imaging. FINDINGS: Targeted right ultrasound was performed in the area of prior imaging concern. The biopsy-proven benign fibroadenoma at 12:00 6 cm from the nipple measures 1.0 x 0.5 x 1.0 cm compared to 1.0 x 0.6 x 1.0 cm compared to breast ultrasound 08/26/2024. It demonstrates internal vascularity. The hypoechoic mass with indistinct margins at 4:00 asymmetries from the nipple measures 0.8 x 0.2 x 0.5 cm compared to 0.6 x 0.2 x 0.3 cm on breast ultrasound 08/26/2024. The mass measures up to 1.4 cm in the maximum dimensions. It is avascular. Procedure Note Daniel Baeza MD - 05/18/2025 BI US BREAST LIMITED (RIGHT) Additional patient information: 6 month follow-up of a biopsy-provenbenign right breast fibroadenoma (the patient declined clip placement atthe time of biopsy) and right breast mass at 4:00. The patient previouslydeclined a biopsy of the right breast mass at 4:00 and elected for shortterm follow-up. TECHNIQUE: Targeted right breast ultrasound was performed. COMPARISON: Comparison is made with relevant prior imaging. FINDINGS: Targeted right ultrasound was performed in the area of prior imagingconcern. The biopsy-proven benign fibroadenoma at 12:00 6 cm from thenipple measures 1.0 x 0.5 x 1.0 cm compared to 1.0 x 0.6 x 1.0 cm comparedto breast ultrasound 08/26/2024. It demonstrates internal vascularity. The hypoechoic mass with indistinct margins at 4:00 asymmetries from thenipple measures 0.8 x 0.2 x 0.5 cm compared to 0.6 x 0.2 x 0.3 cm onbreast ultrasound 08/26/2024. The mass measures up to 1.4 cm in the maximumdimensions. It is avascular. IMPRESSION: 1. Interval increase in size of the indeterminate right breast mass atthe 4:00 position. The recommendation stands for an ultrasound-guidedbiopsy. 2. 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 No additional imaging follow-up for this finding isrecommended. BI-RADS 4 SUSPICIOUS Results and recommendations were communicated to the patient at time ofexamination. The breast imaging department will assist the patient inscheduling the recommended procedure. us Sandi Castillo DO IMG US BREAST Final Result * Mammogram Outside (No Interpretation) (08/26/2024 12:05 AM EST) Narrative Record, 10/12/2024 11:56 AM EST This study is for PACS storage only and not for interpretation. Procedure Note Record, 10/12/2024 This study is for PACS storage only and not for interpretation. us Unknown Unknown MD MORIN OUTSIDE IMAGING W/OUT INT ERPRETATION Final Result * (ABNORMAL) Historical Lab (08/23/2011 5:27 PM EST) GLUCOSE 83 70 - 100 mg/dL [facility] UREA N 14 6 - 23 mg/dL [facility] CREATININE 0.66 0.50 - 1.20 mg/dL [facility] eGFR >=60 [facility] Comment: (Abnormal if <60 mL/min/1.73m2 If patient is black, multiply by 1.21) SODIUM 135(A) 136 - 145 mmol/L [facility] POTASSIUM 3.1(A) 3.4 - 5.0 mmol/L [facility] CHLORIDE 100 98 - 107 mmol/L [facility] TOTAL CO2 25 22 - 31 mmol/L [facility] ALT/GPT 9(A) 10 - 50 U/L [facility] AST/GOT 16 10 - 50 U/L [facility] ALK PHOS 60 35 - 130 U/L [facility] AMYLASE 131(A) 28 - 100 U/L [facility] TOT BILI 0.7 0.0 - 1.0 mg/dL [facility] LIPASE 53 13 - 60 U/L [facility] TOT PROT 7.9 6.4 - 8.3 g/dL [facility] ALBUMIN 4.6 3.5 - 5.2 g/dL [facility] CALCIUM 9.4 8.8 - 10.7 mg/dL [facility] CHOLESTEROL 148 140 - 199 mg/dL [facility] TRIGLYCERIDES 33(A) 35 - 150 mg/dL [facility] HDL 64 40 - 100 mg/dL [facility] CLDL 77 50 - 129 mg/dL [facility] VLDL 7 mg/dL [facility] ANION GAP 10 5 - 17 mmol/L [facility] GLOBULIN 3.3 2.2 - 4.2 g/dL [facility] 08/23/2011 5:27 PM EST Comment:BLOOD us River Hernandes MD, PhD LAB BLOOD ORDERABLES Niesha lew Result [address] [address] from Last 3 Months or Most Recently Relevant to Health Maintenance Insurance MEDEX SUPPLEMENT MEDICARE PART A & B Soft Tissue Regeneration MEDEX SUPPLEMENT MEDICARE PART A & B Soft Tissue Regeneration MEDEX SUPPLEMENT MEDICARE PART A & B Soft Tissue Regeneration MEDEX SUPPLEMENT MEDICARE PART A & B Soft Tissue Regeneration MEDEX SUPPLEMENT MEDICARE PART A & B Soft Tissue Regeneration MEDEX SUPPLEMENT MEDICARE PART A & B Soft Tissue Regeneration MEDEX SUPPLEMENT MEDICARE PART A & B Soft Tissue Regeneration MEDEX SUPPLEMENT MEDICARE PART A & B Soft Tissue Regeneration MEDEX SUPPLEMENT MEDICARE PART A & B Care Teams Assistant Merchandise Manager Relationship Specialty Start Date End Date Kayli Fulton MD [address] [place] [address] PCP - General Internal Medicine 03/07/25 Jean Angel MD [address] [place] [address] Cancer [place] - [place] [address] [address] [email or web address] Medical Oncology 03/07/25 Cat Dorsey, [address] [address] [email or web address] Provider Relations Representative Hematology and Oncology 05/02/25 Additional Source Comments The information contained in this document represents components of the legal health record. It is not the complete legal health record.[facility]
--- OUTSIDE RECORDS SUMMARY | 2025-06-08 16:29 | XMS_ITS | Encounter Summary ---
Author Organization [facility] Address [address] [address] Phone Care Team Providers Care Client Services Account Manager Name Role Phone Kaelyn Vanegas MD Primary Care Provider + Kayli Fulton MD Primary Care Provider + Jean Angel MD Unavailable Cat Dorsey [facility] Unavailable Encounter Details Date Type Department Care Team (Late st Contact Info) Description 11/18/2024 Procedure Pass [facility], [address] [address] Social History Tobacco Use Types Packs/Day Years [...] Description 06/13/2025 1:45 PM EST Office Visit [facility] Medical Specialties [address] [place] [address] Jean Angel MD [address] [place] [address] - [place] [address] [address] [email or web address] 10/24/2025 9:00 AM EDT Blood Draw Laboratory Services, [address] 2nd [place] [address] Jean Angel MD [address] [place] [address] [address] [email or web address] 10/24/2025 10:00 AM EDT Office Visit [facility], Division of Hematologic Oncology, [address] [place] [address] Jean Angel MD [address] [place] [address] [address] Michael@[email or web address] documented as of this encounter Visit Diagnoses Not on filedocumented in this encounter Care Teams Client Services Account Manager Relationship Specialty Start Date End Date Kaelyn Vanegas MD [address] [place] [address] PCP - General Internal Medicine 11/04/18 03/06/25 Kayli Fulton MD [address] [place] [address] PCP - General Internal Medicine 03/07/25 Jean Angel MD [address] [place] [address] Cancer [place] - [place] [address] [address] [email or web address] Medical Oncology 03/07/25 Cat Dorsey, [address] [address] [email or web address] Geodetic Survey Director Hematology and Oncology 05/02/25 documented as of this encounter Additional Source Comments The information contained in this document represents components of the legal health record. It is not the complete legal health record.[facility]
== END 2025-06-08 14:50 | disposition home or self-care (01) ==
LOC: HO.HMCHD 12:59
PROVIDERS: PCP Internal Medicine; Visit Provider Internal Medicine
DX: E46 Unspecified protein-calorie malnutrition (principal); D50.8 Other iron deficiency anemias; Q79.60 Ehlers-Danlos syndrome, unspecified; G90.A Postural orthostatic tachycardia syndrome [POTS]; H53.149 Visual discomfort, unspecified; H53.9 Unspecified visual disturbance; R42 Dizziness and giddiness

== ENCOUNTER → 2025-06-08 12:59 | Outpatient (BNVA) | payer MEDICARE, SELFPAY | PROVIDERS: PCP Internal Medicine; Visit Provider Internal Medicine | DX: Z76.89 Persons encountering health services in other specified circumstances (principal); E46 Unspecified protein-calorie malnutrition; Z68.1 Body mass index [BMI] 19.9 or less, adult; D50.8 Other iron deficiency anemias; G90.A Postural orthostatic tachycardia syndrome [POTS]; H53.149 Visual discomfort, unspecified; H53.9 Unspecified visual disturbance; R42 Dizziness and giddiness; N84.0 Polyp of corpus uteri; D24.1 Benign neoplasm of right breast; E50.9 Vitamin A deficiency, unspecified; Q79.60 Ehlers-Danlos syndrome, unspecified | CPT/HCPCS: 99212 ==

== ENCOUNTER 2025-06-20 14:24 | Outpatient (REF) | payer MEDICARE, SELFPAY ==
--- NOTE | ~2025-06-20 | XR_ITS ---
EXAMINATION: XR HAND, RIGHT CLINICAL INFORMATION: M79.641 - Pain in right hand COMPARISON: None available. TECHNIQUE: PA, lateral, and oblique views of the right hand. FINDINGS: There is juxta-articular osteopenia. Joint spaces are preserved. No fractures are identified. XR/XR hand RT min 3V IMPRESSION: There is juxta-articular osteopenia, a nonspecific finding. Electronically signed by: Isrrael Kirk MD 06/20/2025 04:26 PM EST
--- NOTE | ~2025-06-20 | MR_ITS ---
EXAMINATION: MR BRAIN WITHOUT CONTRAST CLINICAL INFORMATION: R 42. Dizziness and giddiness. COMPARISON: None available. TECHNIQUE: MRI of the brain was obtained using routine sequences without contrast. FINDINGS: No restricted diffusion. No acute intracranial hemorrhage, mass effect, midline shift, hydrocephalus or herniation. Reaves-white matter differentiation is normal. Bilateral, a few, scattered, nonspecific white matter hyperintense T2 FLAIR signal involving centrum semiovale and velasco radiata. Craniocervical junction is intact demonstrated mild prominent pannus formation abutting the medulla oblongata. Borderline position of the cerebellar tonsils. Sellar/suprasellar region is normal. Flow-void signal within the main cerebral vessels is normal. Anterior inferior cerebral arteries type II, bilaterally. 2 mm isointense T2 signal within the left internal carotid canal.. MR/MR head/brain wo con IMPRESSION: No acute brain abnormality. Small intracanalicular vestibular schwannoma left ICA cannot be excluded. Electronically signed by: Sanju Castillo MD 06/20/2025 04:02 PM TALIA PAGAN
[2025-06-20 14:53] LABS: MANUAL DIFF FLAG NO
[2025-06-20 15:25] LABS: Hematocrit 30.6 % (37.0-47.0); Hemoglobin 9.4 g/dl (12.0-16.0); Imm Gran Abs Auto 0.02 X10*3/uL (0.00-0.03); Imm Gran Pct Auto 0.4 % (0.0-0.4); Lymphocytes Absolute Auto 1.9 X10*3/uL (1.2-4.9); Mean Corpuscular HGB Conc 30.7 g/dl (31.0-35.0); Mean Corpuscular Hemoglobin 25.1 pg (27.0-33.0); Mean Corpuscular Volume 81.6 fL (80.0-98.0); NRBC Abs Auto 0.000 X10*3/uL (0.0-0.012); NRBC Pct Auto 0.0 /100WBC (0.0-0.2); Platelet Count 403 X10*3/uL (160-400); Red Blood Count 3.75 X10*6/uL (4.20-5.50); White Blood Count 5.6 X10*3/uL (4.8-10.8)
--- OUTSIDE RECORDS SUMMARY | 2025-06-20 16:45 | XMS_ITS | Data Portability ---
Author Organization [place] - [facility] Address [address] [place] [address] Care Team Providers Care Content Management Consultant Name Role Phone ANA CANTU Primary Care Provider [phone] Assessment Encounter Date Assessment Date Assessment LastModified [...] her. I have reviewed the external medical records:[employer] lab/imaging reports from (hospital system/practice) [...] after care of this patient according to [facility]'s infection prevention protocols. Not available 03/19/2023 18:47:52 Plan of Treatment Reminders Order Date Submit Date Provider Last Modified By Organization Details Last Modified Time Details Appointments None recorded. Lab urinalysis , dipstick 2022 023 [email or web address] 5 [facility], [address] [place] [address], [address], 3 19:02:43 BMP + ionized calcium, serum or plasma 2022 023 CANDY Spr [facility], [address], [place], [address], 15:44:03 lactate, venous plasma 2022 023 CANDY Richards [facility], [address], [place], [address], 3 15:43:03 Referral None recorded. Procedures None recorded. Surgeries None recorded. Imaging None recorded. Medication Orders None recorded. Patient TargetsNo targets recorded. Patient Instructions Encounter Date Encounter Id Patient Instructions Last Modified By Organization Details Last Modified Time 03/19/2023 [id number] [facility] yo [facility]. We cannot always find the [...] in your condition between 8am-10pm, please call [facility] at [phone] to help navigate your care. Not available 03/19/2023 19:02:55 Lab ResultsCG4+ iStat [...] , dipst ick Appearance clear Not Available [facility] [address] [place], [address], 03/19/2023 15:23:27 03/19/20 23 03/19/2023 urina lysis , dipst ick Color yellow Not Available [facility] [address] [place], [address], 03/19/2023 15:23:27 03/19/2003/19/2023 urina lysis , dipst ick Glucose (ref: neg) Neg Not Available [facility] [address] [place], [address], 03/19/2023 15:23:27 03/19/20 23 03/19/2023 urina lysis , dipst ick Bilirubin (ref: neg) Neg Not Available [facility] [address] [place], [address], 03/19/2023 15:23:27 03/19/20 23 03/19/2023 urina lysis , dipst ick Ketones (ref: neg Neg Not Available [facility] [address] [place], [address], 03/19/2023 15:23:27 03/19/20 23 03/19/2023 urina lysis , dipst ick Specific [facility] (ref: 1.005 - 1.030) 1.005 Not Available [facility] [address] [place], [address], 03/19/2023 15:23:27 03/19/20 23 03/19/2023 urina lysis , dipst ick Blood (ref: neg) Neg Not Available [facility] [address] [place], [address], 03/19/2023 15:23:27 03/19/20 23 03/19/2023 urina lysis , dipst ick pH (ref: 5.0-7.0 5.0 Not Available [address], [address], 03/19/2023 15:23:27 03/19/20 23 03/19/2023 urina lysis , dipst ick Protein (ref: neg) Neg Not Available [address], [address], 03/19/2023 15:23:27 03/19/20 23 03/19/2023 urina lysis , dipst ick Urobilinogen (ref: 0.2-1) 0.2 Not Available [address], [address], 03/19/2023 15:23:27 03/19/20 23 03/19/2023 urina lysis , dipst ick Nitrites (ref: neg negati ve Not Available [address], [address], 03/19/2023 15:23:27 03/19/20 23 03/19/2023 urina lysis , dipst ick Leukocytes (ref: neg Neg Not Available [address], [address], 03/19/2023 15:23:27 03/19/20 23 03/19/2023 urina lysis , dipst ick Location [facility], [address] [place] [address], [phone] Not Available [address], [address], 03/19/2023 15:23:27 03/19/20 23 03/19/2023 BMP + IONIZ ED CALCI UM, SERUM OR PLASM A BUN <5 mg/dL 8-26 unknown Not Available [facility] [address] [place], [address], 03/19/2023 15:44:03 03/19/20 23 03/19/2023 BMP + IONIZ ED CALCI UM, SERUM OR PLASM A glu 111 mg/dL 70-105 Not Available [address], [address], 03/19/2023 15:44:03 03/19/20 23 03/19/2023 BMP + IONIZ ED CALCI UM, SERUM OR PLASM A crea 0.5 mg/dL 0.6-1. 3 Not Available [address], [address], 03/19/2023 15:44:03 03/19/20 23 03/19/2023 BMP + IONIZ ED CALCI UM, SERUM OR PLASM A Na 138 mmol/ L 138-14 6 Not Available [address], [address], 03/19/2023 15:44:03 03/19/20 23 03/19/2023 BMP + IONIZ ED CALCI UM, SERUM OR PLASM A K 4.1 mmol/ L 3.5-4. 9 Not Available [address], [address], 03/19/2023 15:44:03 03/19/20 23 03/19/2023 BMP + IONIZ ED CALCI UM, SERUM OR PLASM A cL 98 mmol/ L 98-109 Not Available [address], [address], 03/19/2023 15:44:03 03/19/20 23 03/19/2023 BMP + IONIZ ED CALCI UM, SERUM OR PLASM A TCO2 25 mmol/ L 24-29 Not Available [address], [address], 03/19/2023 15:44:03 03/19/20 23 03/19/2023 BMP + IONIZ ED CALCI UM, SERUM OR PLASM A angap 20 mmol/ L 10-20 Not Available [address], [address], 03/19/2023 15:44:03 03/19/20 23 03/19/2023 BMP + IONIZ ED CALCI UM, SERUM OR PLASM A ica 1.21 mmol/ L 1.12-1 .32 Not Available [place] [place], [address], 03/19/2023 15:44:03 03/19/20 23 03/19/2023 BMP + IONIZ ED CALCI UM, SERUM OR PLASM A HCT 36 %pcv 38-51 Not Available [address], [address], 03/19/2023 15:44:03 03/19/20 23 03/19/2023 BMP + IONIZ ED CALCI UM, SERUM OR PLASM A Hb 12.2 g/dL 12-17 Not Available [address], [address], 03/19/2023 15:44:03 03/19/20 23 03/19/2023 CG4+ ISTAT lac 1.83 mmol/ L 0.9-1. 7 Not Available [address], [address], 03/19/2023 15:43:02 Result Notes None recorded. Procedures Surgical History Date Name Laterality Status Provider Name and Address Organization Details Recorded Time 03/19/20 Venipuncture - DH completed MEENA Arthur [address] [place], [address], [place] [facility] 03/19/2023 18:41:21 Appendectomy completed MEENA Arthur [address] [place], [address], [place] [facility] 03/19/2023 15:12:56 Imaging Results None recorded. Procedure Notes None recorded. Medical Equipment None Reported. Allergies Allergen ID Allergen Name Allergen Category Reaction Reaction Severity Criticality Documentation Date Start Date Code Code System Note Provider Name and Address Organization Details Recorded Time 067853 iodine medicatio n Not available Not available Not available 03/19/2023 5933 RxNorm MEENA Arthur [address] [facility], [address], [place] [facility] 15:10:30 [id number] Substance with quinolone structure and antibacte rial mechanism of action (substanc e) medicatio n Not available Not available Not available 03/19/2023 77782 1999 SNOMED MEENA Arthur [address] [facility] [place], [address], [place] [facility] 15:10:40 Medications Name Sig Start Date Stop [...] [degF] 110 /min 116/66 mm[Hg] Not Available [facility] 15:14:55 Social History Question Answer Notes LastModified by Organizat ion Details LastModified Time Tobacco Smoking Status Never Smoker MEENA Arthur [address], [place], [address], [place] [facility] 03/19/2023 15:12:08 Excessive Alcohol Or Drug Use No [email or web address] Information not available 03/19/2023 Does This Patient Have A PCP? Yes [email or web address] Information not available 03/19/2023 Has The Patient Seen Their PCP In The Past 6 Months? Yes [email or web address] Information not available 03/19/2023 Is This Patient [...] Organization Details LastModified Time Father Diabetes mellitus [email or web address] Not available 03/19 15:11:34 Medical History Condition [...] ICD10 Code Diagnosis IMO Codes Diagnosis Note [id number] MEENA Arthur [facility] [address] [place] [address] 03/19/2023 15:08:39 03/20/2023 16:20:53 Fatigue 07597175 R53.83 Status of condition: Exacerbati on/Acute on [...] refused to sign AMA form on scene. [facility] was present and witnessed discussion and [...] ID Guarantor Name 03/23/2023 2 [place] [id number] Evangelina Colon [id number] Evangelina Colon 03/23/2023 2 [place]MEDICARE REPLACEMENT HMO) [id number] Evangelina I Colon [id number] Evangelina Colon 03/20/2023 1 [place] [employer] Evangelina I Colon [id number] Evangelina Colon 04/09/2023 2 [place]IC[place] SUPPLEMENT) [id number] Evangelina Colon [id number] Evangelina Colon 03/18/2023 1 *SELF PAY* Evangelina Colon [id number] Evangelina Adkins Notes Date Note Type Note [...] palpitations and PVCs. MEENA Arthur [address] [place], [address], [place] [facility] 03/19/2023 19:03:14 OBGyn Episode No OBEpisode recorded.
--- OUTSIDE RECORDS SUMMARY | 2025-06-20 16:45 | XMS_ITS | Clinical Summary ---
Author Organization [address] Address [address] [place] [address] Care Team Providers Care Organic Extractions Technician Name Role Phone Kaelyn Vanegas MD Primary Care Provider [phone] Social History Tobacco Use Types Packs/Day Years Used Date Smoking Tobacco: Never Assessed Comments Unknown Sex and Gender Information Value Date Recorded Sex Assigned at Not on file Legal Sex Female 11:16 AM EDT Gender Identity Not on file Sexual Orientation Not on file Plan of Treatment Health Maintenance Due Date Last Done Comments HIV screening 1991 Hepatitis C screening 1996 Tetanus adult (Td q 10,TDAP once) 1998 Cervical cancer screening 1999 Breast cancer screening 2018 Lipid disorder screening 2018 Colon cancer screening, Colonoscopy 2023 Diabetes screening 2023 Influenza vaccine 03/11/2025 Covid-19 vaccine series (2024- season) 2025 RSV Immunization (1 - 1-dose 75+ series) 2053 Meningococcal B Vaccine Aged Out No l onger eligible based on patient's age to complete this topic Meningococcal Vaccine Aged Out No zulma jeff eligible based on patient's age to complete this topic Pneumococcal Vaccine (2 - 49 years) Aged Out No longer eligible based on patient's age to complete this topic Insurance MEDICARE [facility] MEDICARE [facility] MEDICARE BS Care Teams Organic Extractions Technician Relationship Specialty Start Date End Date Kaelyn Vanegas MD [address] [address] PCP - General Internal Medicine 06/29/19
--- OUTSIDE RECORDS SUMMARY | 2025-06-20 16:45 | XMS_ITS | Encounter Summary ---
Author Organization [facility] Address [address] [address] Phone Care Team Providers Care Associate Director Of Development Name Role Phone Kaelyn Vanegas MD Primary Care Provider + Kayli Fulton MD Primary Care Provider + Jean Angel MD Unavailable [phone] Cat Dorsey [facility] Unavailable System, Provider Not In PhD Primary Care Provide r Unavailable Kaelyn Vanegas MD Primary Care Provider + Encounter Details Date Type Department Care Team (Late st Contact Info) Description 11/17/2024 Transcribe Orders Virtual Department [address] [place] [address] Sandi Castillo DO [address] [place] [address] Social History Tobacco Use Types Packs/Day Years [...] Care Team (Late st Contact Info) Description 07/11/2025 12:00 PM EST Office Visit [facility] Genetics [address] [place] [address] Belle Diamond MD [address] [place] [address] [email or web address] 10/24/2025 9:00 AM EDT Blood Draw Laboratory Services, [facility] [address] [facility], 2nd [place] [address] Jean Angel MD 450 [facility] [place] [address] [place] [address] [email or web address] 10/24/2025 10:00 AM EDT [facility] Visit [facility] Division of Hematologic Oncology, [address], [address]th [place] [address] Jean Angel MD 450 [facility] [place] [address] [place] [address] [email or web address] documented as of this encounter Visit Diagnoses Not on filedocumented in this encounter Care Teams Associate Director Of Development Relationship Specialty Start Date End Date Kaelyn Vanegas MD PCP - General Internal Medicine 11/04/18 03/06/25 Kayli Fulton MD [address] [place] [address] PCP - General Internal Medicine 03/07/25 06/13/25 System, Provider Not In, [facility] [address] [place] [address] PCP - General 06/14/25 06/16/25 Kaelyn Vanegas MD [address] [place] [address] PCP - General Internal Medicine 06/17/25 Jean Angel MD [address] [place] [address] - [place] [address] [address] [email or web address] Medical Oncology 03/07/25 Cat Dorsey, [address] [address] [email or web address] Grid Operator Hematology and Oncology 05/02/25 documented as of this encounter Additional Source Comments The information contained in this document represents components of the legal health record. It is not the complete legal health record.[facility]
--- OUTSIDE RECORDS SUMMARY | 2025-06-20 16:46 | XMS_ITS | Clinical Summary ---
Author Organization [facility] Address [address] [place] [address] Care Team Providers Care Machine Milker Name Role Phone Kaelyn Vanegas MD Primary Care Provider [phone] Surgical History Surgery Date Site/Laterality Comments APPENDECTOMY 2006 PROCEDURE: HISTORICAL APPENDECTOMY; COMMENT: complicated with abscess Medical History Medical History Date Comments Anemia DX:Anemia B12 deficiency DX:B12 deficienc y Cervicocranial syndrome DX:Cervi cocranial syndrome Change in consistency of stool D X:Change in consistency of stool Chronic fatigue DX:Chronic fatig ue Chronic generalized pain DX:Limousine Driver sarai generalized pain Depression DX:Depression Dizziness DX:Dizziness Dysautonomia (CMS/HCC V24, CMS/HCC V28) DX:Dysautonomia (HCC) Mallory-Danlos syndrome DX:Mallory -Danlos syndrome Epigastric pain DX:Epigastric pa in Folic acid deficiency DX:Folic a theodore deficiency Gluten intolerance DX:Gluten int olerance Hepatic cyst DX:Hepatic cyst IBS (irritable bowel syndrome) D X:IBS (irritable bowel syndrome) Malnutrition (CMS/HCC V24) DX:Ma lnutrition ([facility]) Mast cell disorder DX:Mast cell disorder Osteoporosis [...] age to complete this topic Care Teams Machine Milker Relationship Specialty Start Date End Date Kaelyn Vanegas MD [address] [place] [address] PCP - General 02/18/13
--- OUTSIDE RECORDS SUMMARY | 2025-06-20 16:46 | XMS_ITS | Encounter Summary ---
Author Organization [facility] Address [address] [place] [address] Phone Care Team Providers Care Roller Embosser Name Role Phone Kaelyn Vanegas MD Primary Care Provider + Kayli Fulton MD Primary Care Provider + Jean Angel MD Unavailable Cat Dorsey [facility] Unavailable System, Provider Not In PhD Primary Care Provide r Unavailable Kaelyn Vanegas MD Primary Care Provider + Encounter Details Date Type Department Care Team (Late st Contact Info) Description 11/18/2024 Procedure Pass [facility], [address] [address] Social History Tobacco Use Types Packs/Day Years [...] Description 07/11/2025 12:00 PM EST Office Visit [facility] Genetics [address] [place] [address] Belle Diamond MD [address] [place] [address] [email or web address] 10/24/2025 9:00 AM EDT Blood Draw Laboratory Services, [address], [address]nd [place] [address] Jean Angel MD [address] [facility] [place] [address] [address] [email or web address] 10/24/2025 10:00 AM EDT Office Visit [facility], Division of Hematologic Oncology, [address], [address]th [place] [address] Jean Angel MD [address] [facility] [place] [address] [place] [address] [email or web address] documented as of this encounter Visit Diagnoses Not on filedocumented in this encounter Care Teams Roller Embosser Relationship Specialty Start Date End Date Kaelyn Vanegas MD PCP - General Internal Medicine 11/04/18 03/06/25 Kayli Fulton MD [address] [place] [address] PCP - General Internal Medicine 03/07/25 06/13/25 System, Provider Not In, [facility] Partners [address] [address] PCP - General 06/14/25 06/16/25 Kaelyn Vanegas MD [address] [place] [address] PCP - General Internal Medicine 06/17/25 Jean Angel MD [address] [place] [address] [facility] [place] [facility] [place] [address] [address] [email or web address] Medical Oncology 03/07/25 Cat Dorsey, [address] [address] [email or web address] Strand Galvanizer Hematology and Oncology 05/02/25 documented as of this encounter Additional Source Comments The information contained in this document represents components of the legal health record. It is not the complete legal health record.[facility]
--- OUTSIDE RECORDS SUMMARY | 2025-06-20 16:46 | XMS_ITS | Encounter Summary ---
Author Organization [facility] Address [address] [facility] [address] [place] [address] Phone Care Team Providers Care Office Machine Installer Name Role Phone Kaelyn Vanegas MD Primary Care Provider + Kayli Fulton MD Primary Care Provider + Jean Angel MD Unavailable [phone] Cat Dorsey [facility] Unavailable System, Provider Not In PhD Primary Care Provide r Unavailable Kaelyn Vanegas MD Primary Care Provider + Reason for Referral * Consultation (Within 1 month) - Closed Specialty Diagnoses / Procedures Referred By Angus hu Referred To Contact Gastroenterology Diagnoses Liver disease Kaelyn Vanegas MD Phone: tel: Paul Gill MD, DPHIL Phone: tel: fax: mailto:[email or web address] Referral ID Status Reason Start Date Expiration Date Visits Re quested Visits Authorized [id number] Closed 11/30/2018 12/01/2019 1 1 Encounter Details Date Type Department Care Team (Latest Contact Info) Description 11/30/2018 Transcribe Orders [facility] [address] [place] [address], [address] [place] [address] Kaelyn Vanegas MD [address] [place] [phone] Liver disease (Primary Dx) Social History Tobacco [...] Description 07/11/2025 12:00 PM EST Office Visit [facility] Genetics [address] [place] [address] Belle Diamond MD [address] [place] [address] [email or web address] 10/24/2025 9:00 AM EDT Blood Draw Laboratory Services, [address], [address]nd [place] [address] Jean Angel MD [address] [place] [address] [address] [email or web address] 10/24/2025 10:00 AM EDT Office Visit [facility], Division of Hematologic Oncology, [address], [address]th [place] [address] Jean Angel MD [address] [place] [address] [address] [email or web address] Scheduled Referrals Name Type Priority Associated Diagnoses Order Schedule Ambulatory referral to [facility] Gastroenterology (Consult Requests Only) Outpatient Referral Routine Liver disease Ordered: 11/30/2018 documented as of this encounter Visit Diagnoses Diagnosis Liver disease- Primary Unspecified disorder of liver documented in this encounter Care Teams Office Machine Installer Relationship Specialty Start Date End Date Kaelyn Vanegas MD PCP - General Internal Medicine 11/04/18 03/06/25 Kayli Fulton MD [address] [place] [address] PCP - General Internal Medicine 03/07/25 06/13/25 System, Provider Not In, PhD [address] [address] PCP - General 06/14/25 06/16/25 Kaelyn Vanegas MD [address] [place] [address] PCP - General Internal Medicine 06/17/25 Jean Angel MD [address] [place] [address] [address] [email or web address] Medical Oncology 03/07/25 Cat Dorsey, [address] [address] [email or web address] Cloth Baler Hematology and Oncology 05/02/25 documented as of this encounter Additional Source Comments The information contained in this document represents components of the legal health record. It is not the complete legal health record.[facility]
--- OUTSIDE RECORDS SUMMARY | 2025-06-20 16:46 | XMS_ITS | Continuity of Care Document ---
Author Organization [facility] [address] [facility] [address] [place] [address] Phone [phone] Care Team Providers Care Molding Machine Operator Name Role Phone Kaelyn Vanegas M.D. Care Team Information Rec eiver [phone] Problems Active Problems Provider Date Mallory-Danlos syndrome [...]
--- OUTSIDE RECORDS SUMMARY | 2025-06-20 16:46 | XMS_ITS | Clinical Summary ---
Author Organization [facility] Address [address] [address] Phone Care Team Providers Care Wire Frame Lamp Shade Maker Name Role Phone Jean Angel MD Unavailable Cat Dorsey [facility] Unavailable Kaelyn Vanegas MD Primary Care Provider + Allergies Active Allergy Reactions Criticality Noted Date [...] Encounters Date Type Department Care Team Description 06/14/2025 Telephone [facility] [address] [place] [address] Bobbi Burks 06/14/2025 Ancillary Orders [facility] [address] [place] [address] Belle Diamond MD 06/14/2025 Ancillary Orders [facility] [address] [place] [address] Belle Diamond MD 06/14/2025 Ancillary Orders [facility] [address] [place] [address] Belle Diamond MD 06/14/2025 Ancillary Orders [facility] [address] [place] [address] Belle Diamond MD 06/14/2025 Ancillary Orders [facility] [address] [place] [address] Belle Diamond MD 06/14/2025 Ancillary Orders [facility] [address] [place] [address] Belle Diamond MD 06/14/2025 Ancillary Orders [facility] [address] [place] [address] Belle Diamond MD 06/13/2025 1:45 PM EST Office Visit [facility] [address] [place] [address] [place] [address] Jean Angel MD Familial idiopathic pulmonary fibrosis; 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; Other osteoporosis without current pathological fracture 06/03/2025 Transcribe Orders Virtual Department [address] [place] [address] Sandi Castillo, DO Mass of right breast, unspecified quadrant (Primary Dx); Abnormal finding on breast imaging 05/31/2025 3:30 PM EDT Social Work Social Work Department, [facility] [place] [address] [place] [address] Jean Angel MD Katsetos, Kristy Ana Maria, [facility] 05/19/2025 Documentation [facility] [address] [place] [address] Laura Ortega RN biopsy recommendation 05/18/2025 2:34 PM EDT - 05/18/2025 11:59 PM EDT Hospital Encounter [address] [address] Sandi Castillo DO Discharge Disposition: Home or Self Care 04/12/2025 Telephone [facility] [address] [address] Jean Angel MD 04/07/2025 Orders Only [facility], Division of Hematologic Oncology, [facility] [place] [address] [facility], 8th [place] [address] Jean Angel MD Familial idiopathic pulmonary fibrosis (Primary Dx); 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 Genetics [address] [place] [address] Belle Diamond MD [address] [place] [address] [email or web address] 10/24/2025 9:00 AM EDT Blood Draw Laboratory Services, [address], 2nd [place] [address] Jean Angel MD [address] [place] [address] [address] [email or web address] 10/24/2025 10:00 AM EDT Office Visit [facility], Division of Hematologic Oncology, [address], 8[address] [place] [address] Jean Angel MD [address] [place] [address] [address] [email or web address] Health Maintenance Due Date Last Done Comments [...] 2023 INFLUENZA VACCINE (#1) 2025 COVID-19 VACCINE (2024-2 6 season) 2025 MAMMOGRAM 08/26/2026 08/26/2024 SMOKING STATUS SCREENING (On ce After 26 Yrs) Completed 03/13/2025 HEPATITIS A VACCINES Aged Out No long er eligible based on patient's age to complete this topic HIB VACCINES Aged Out No longer eligi ble based on patient's age to complete this topic IPV VACCINES Aged Out No longer eligi ble [...] and not for interpretation. us Unknown Unknown IMG OUTSIDE IMAGING W/OUT INT ERPRETATION Final Result * (ABNORMAL) Historical Lab (08/23/2011 5:27 PM EST) GLUCOSE 83 70 - 100 mg/dL [facility] UREA N 14 6 - 23 mg/dL [facility] CREATININE 0.66 0.50 - 1.20 mg/dL [facility] eGFR >=60 [facility] Comment: (Abnormal if <60 mL/min/1.73m2 If patient is black, multiply by 1.21) SODIUM 135(A) 136 - 145 mmol/L [facility] POTASSIUM 3.1(A) 3.4 - 5.0 mmol/L [facility] CHLORIDE 100 98 - 107 mmol/L [facility] TOTAL CO2 25 22 - 31 mmol/L [facility] ALT/GPT 9(A) 10 - 50 U/L [facility] AST/GOT 16 10 - 50 U/L [facility] ALK PHOS 60 35 - 130 U/L [facility] AMYLASE 131(A) 28 - 100 U/L [facility] TOT BILI 0.7 0.0 - 1.0 mg/dL [facility] LIPASE 53 13 - 60 U/L [facility] TOT PROT 7.9 6.4 - 8.3 g/dL [facility] ALBUMIN 4.6 3.5 - 5.2 g/dL [facility] CALCIUM 9.4 8.8 - 10.7 mg/dL [facility] CHOLESTEROL 148 140 - 199 mg/dL [facility] TRIGLYCERIDES 33(A) 35 - 150 mg/dL [facility] HDL 64 40 - 100 mg/dL [facility] CLDL 77 50 - 129 mg/dL [facility] VLDL 7 mg/dL [facility] ANION GAP 10 5 - 17 mmol/L [facility] GLOBULIN 3.3 2.2 - 4.2 g/dL [facility] 08/23/2011 5:27 PM EST Comment:BLOOD River Hernandes MD, PhD LAB BLOOD ORDERABLES Niesha lew Result [address] [address] from Last 3 Months or Most Recently Relevant to Health Maintenance Insurance [employer] SU[employer] MEDICARE PART A & B [employer] SU[employer] MEDICARE PART A & B [employer] SU[employer] MEDICARE PART A & B [employer] SU[employer]LE[employer] MEDICARE PART A & B [employer] SU[employer] MEDICARE PART A & B [employer] SU[employer]LEMENT MEDICARE PART A & B [employer] SU[employer]LEMENT MEDICARE PART A & B [employer] SUPPLEMENT MEDICARE PART A & [place] [address] [place] [address] [employer] MEDEX SUPPLEMENT MEDICARE PART A & B Care Teams Wire Frame Lamp Shade Maker Relationship Specialty Start Date End Date Kaelyn Vanegas MD [address] [place] [address] PCP - General Internal Medicine 06/17/25 Jean Angel MD [address] [place] [address] [facility] [place] [facility] [place] [address] [address] [email or web address] Medical Oncology 03/07/25 Cat Dorsey, [address] [address] [email or web address] Crop And Soil Technician Hematology and Oncology 05/02/25 Additional Source Comments The information contained in this document represents components of the legal health record. It is not the complete legal health record.[facility]
[2025-06-20 16:51] LABS: Alanine Aminotransferase 14 U/L (0-31); Albumin Level 4.5 g/dL (3.5-5.0); Alkaline Phosphatase 85 U/L (39-117); Anion Gap 10 (12-20); Aspartate Amino Transferase 20 U/L (5-31); Blood Urea Nitrogen 14 mg/dL (9-16); Calcium 9.2 mg/dL (8.4-10.2); Carbon Dioxide 26 mmol/L (22-29); Chloride 109 mmol/L (96-108); Estimated Glomerular Filt Rate > 60; Ferritin 5 ng/mL (10-250); Iron 15 mcg/dL (30-160); Percent Iron Saturation 4 % (15-50); Potassium 3.9 mmol/L (3.3-5.1); Sodium 141 mmol/L (135-145); Total Iron Binding Capacity 345 mcg/dL (228-428); Total Protein 7.7 g/dL (6.5-8.0); Unsaturated Iron Binding 330 ug/dL
[2025-06-20 17:06] LABS: Folate < 2.2 ng/mL (> or = 4.0); Prealbumin 13.0 mg/dL (20-40); Vitamin B12 284 pg/mL (200-900)
== END 2025-06-20 14:25 | disposition home or self-care (01) ==
LOC: HO.MRI 14:24
PROVIDERS: PCP Internal Medicine; Visit Provider Internal Medicine
DX: R42 Dizziness and giddiness (principal); R51.9 Headache, unspecified; H53.149 Visual discomfort, unspecified; H53.9 Unspecified visual disturbance; M79.641 Pain in right hand; D64.9 Anemia, unspecified; Q79.60 Ehlers-Danlos syndrome, unspecified; E46 Unspecified protein-calorie malnutrition; G90.A Postural orthostatic tachycardia syndrome [POTS]; M81.0 Age-related osteoporosis without current pathological fracture; E55.9 Vitamin D deficiency, unspecified
CPT/HCPCS: 36415; 70551; 73130; 80053; 82180; 82306; 82525; 82607; 82728; 82746; 83540; 84134; 84425; 84443; 84590; 85025

== ENCOUNTER → 2025-06-20 14:57 | Outpatient (BNV) | payer MEDICARE, SELFPAY | PROVIDERS: PCP Internal Medicine; Visit Provider Radiology Diagnostic Radiology | DX: R42 Dizziness and giddiness (principal) | CPT/HCPCS: 70551 ==

== ENCOUNTER 2025-07-04 14:18 | Outpatient (REF) | payer MEDICARE, SELFPAY ==
--- OUTSIDE RECORDS SUMMARY | 2025-07-04 19:13 | XMS_ITS | Data Portability ---
Author Organization [place] [facility] Address [address] [place] [address] Care Team Providers Care Needlemaker Name Role Phone ANA CANTU Primary Care Provider [phone] Assessment Encounter Date Assessment Date Assessment LastModified [...] her. I have reviewed the external medical records:[employer] lab/imaging reports from (hospital system/practice) [...] after care of this patient according to [facility]'s infection prevention protocols. [email or web address] Not available 03/19/2023 18:47:52 Plan of Treatment Reminders Order Date Submit Date Provider Last Modified By Organization Details Last Modified Time Details Appointments None recorded. Lab urinalysis , dipstick 2022 023 [email or web address] [facility], [address] [place] [address], [id number], 3 19:02:43 BMP + ionized calcium, serum or plasma 2022 023 CANDY Spr [facility], [address], [place], [address], 15:44:03 lactate, venous plasma 2022 023 CANDY Richards [facility], [address], [place], [address], 3 15:43:03 Referral None recorded. Procedures None recorded. Surgeries None recorded. Imaging None recorded. Medication Orders None recorded. Patient TargetsNo targets recorded. Patient Instructions Encounter Date Encounter Id Patient Instructions Last Modified By Organization Details Last Modified Time 03/19/2023 [id number] Thank you for yo ur visit with [facility] today. We cannot always find the exact [...] in your condition between 8am-10pm, please call [facility] at [phone] to help navigate your care. [email or web address] Not available 03/19/2023 19:02:55 Lab ResultsCG4+ iStat [...] , dipst ick Appearance clear Not Available [facility] [address] [place], [address], 03/19/2023 15:23:27 03/19/20 23 03/19/2023 urina lysis , dipst ick Color yellow Not Available [facility] [address] [place], [address], 03/19/2023 15:23:27 03/19/2003/19/2023 urina lysis , dipst ick Glucose (ref: neg) Neg Not Available [facility] [address] [place], [address], 03/19/2023 15:23:27 03/19/20 23 03/19/2023 urina lysis , dipst ick Bilirubin (ref: neg) Neg Not Available [facility] [address] [place], [address], 03/19/2023 15:23:27 03/19/20 23 03/19/2023 urina lysis , dipst ick Ketones (ref: neg Neg Not Available [facility] [address] [place], [address], 03/19/2023 15:23:27 03/19/20 23 03/19/2023 urina lysis , dipst ick Specific Mather (ref: 1.005 - 1.030) 1.005 Not Available [facility] [address] [place], [address], 03/19/2023 15:23:27 03/19/20 23 03/19/2023 urina lysis , dipst ick Blood (ref: neg) Neg Not Available [facility] [address] [place], [address], 03/19/2023 15:23:27 03/19/20 23 03/19/2023 urina lysis , dipst ick pH (ref: 5.0-7.0 5.0 Not Available [address], [address], 03/19/2023 15:23:27 03/19/20 23 03/19/2023 urina lysis , dipst ick Protein (ref: neg) Neg Not Available [address], [address], 03/19/2023 15:23:27 03/19/20 23 03/19/2023 urina lysis , dipst ick Urobilinogen (ref: 0.2-1) 0.2 Not Available [address], [address], 03/19/2023 15:23:27 03/19/20 23 03/19/2023 urina lysis , dipst ick Nitrites (ref: neg negati ve Not Available [address], [address], 03/19/2023 15:23:27 03/19/20 23 03/19/2023 urina lysis , dipst ick Leukocytes (ref: neg Neg Not Available [address], [address], 03/19/2023 15:23:27 03/19/20 23 03/19/2023 urina lysis , dipst ick Location [facility], [facility], [address] [place] [address], [id number] Not Available [address], [address], 03/19/2023 15:23:27 03/19/20 23 03/19/2023 BMP + IONIZ ED CALCI UM, SERUM OR PLASM A BUN <5 mg/dL 8-26 unknown Not Available [facility] [address] [place], [address], 03/19/2023 15:44:03 03/19/20 23 03/19/2023 BMP + IONIZ ED CALCI UM, SERUM OR PLASM A glu 111 mg/dL 70-105 Not Available [address], [address], 03/19/2023 15:44:03 03/19/20 23 03/19/2023 BMP + IONIZ ED CALCI UM, SERUM OR PLASM A crea 0.5 mg/dL 0.6-1. 3 Not Available [address], [address], 03/19/2023 15:44:03 03/19/20 23 03/19/2023 BMP + IONIZ ED CALCI UM, SERUM OR PLASM A Na 138 mmol/ L 138-14 6 Not Available [address], [address], 03/19/2023 15:44:03 03/19/20 23 03/19/2023 BMP + IONIZ ED CALCI UM, SERUM OR PLASM A K 4.1 mmol/ L 3.5-4. 9 Not Available [address], [address], 03/19/2023 15:44:03 03/19/20 23 03/19/2023 BMP + IONIZ ED CALCI UM, SERUM OR PLASM A cL 98 mmol/ L 98-109 Not Available [address], [address], 03/19/2023 15:44:03 03/19/20 23 03/19/2023 BMP + IONIZ ED CALCI UM, SERUM OR PLASM A TCO2 25 mmol/ L 24-29 Not Available [address], [address], 03/19/2023 15:44:03 03/19/20 23 03/19/2023 BMP + IONIZ ED CALCI UM, SERUM OR PLASM A angap 20 mmol/ L 10-20 Not Available [address], [address], 03/19/2023 15:44:03 03/19/20 23 03/19/2023 BMP + IONIZ ED CALCI UM, SERUM OR PLASM A ica 1.21 mmol/ L 1.12-1 .32 Not Available [address] [place], [address], 03/19/2023 15:44:03 03/19/20 23 03/19/2023 BMP + IONIZ ED CALCI UM, SERUM OR PLASM A HCT 36 %pcv 38-51 Not Available [address], [address], 03/19/2023 15:44:03 03/19/20 23 03/19/2023 BMP + IONIZ ED CALCI UM, SERUM OR PLASM A Hb 12.2 g/dL 12-17 Not Available [address], [address], 03/19/2023 15:44:03 03/19/20 23 03/19/2023 CG4+ ISTAT lac 1.83 mmol/ L 0.9-1. 7 Not Available [address], [address], 03/19/2023 15:43:02 Result Notes None recorded. Procedures Surgical History Date Name Laterality Status Provider Name and Address Organization Details Recorded Time 03/19/20 Venipuncture - DH completed MEENA Arthur [address] [place], [address], [place] [facility] 03/19/2023 18:41:21 Appendectomy completed MEENA Arthur [address] [place], [address], [place] [facility] 03/19/2023 15:12:56 Imaging Results None recorded. Procedure Notes None recorded. Medical Equipment None Reported. Allergies Allergen ID Allergen Name Allergen Category Reaction Reaction Severity Criticality Documentation Date Start Date Code Code System Note Provider Name and Address Organization Details Recorded Time 995253 iodine medicatio n Not available Not available Not available 03/19/2023 5933 RxNorm MEENA Arthur [address] [facility] [place], [address], [place] [facility] 15:10:30 237201 Substance with quinolone structure and antibacte rial mechanism of action (substanc e) medicatio n Not available Not available Not available 03/19/2023 72482 2000 SNOMED MEENA Arthur [address] [facility] [place], [address], [place] [facility] 15:10:40 Medications Name Sig Start Date Stop Date Status Note LastModified by Organization Details LastModified Time epinephrine 0.3 mg/0.3 mL injection, auto-injecto r INJECT 0.3 MG INTRAMUSCUL KIA ONCE active Not Available Not Available No t Available Flowflex COVID-19 Antigen Home Test kit USE DIRECTED active Not Available Not Available No t Available Vitals Date Recorded Respiratory rate Oxygen saturation Body temperature Heart rate Systolic And Diastolic Provider Name and Address Organization Details Last Updated DateTime 18 /min 97 % 99.2 [degF] 110 /min 116/66 mm[Hg] Not Available [facility] 15:14:55 Social History Question Answer Notes LastModified by Organizat ion Details LastModified Time Tobacco Smoking Status Never Smoker MEENA Arthur [address], [place], [address], [place] [facility] 03/19/2023 15:12:08 Excessive Alcohol Or Drug Use No Information not available 03/19/2023 Does This Patient Have A PCP? Yes [email or web address] Information not available 03/19/2023 Has The Patient Seen Their PCP In The Past 6 Months? Yes [email or web address] Information not available 03/19/2023 Is This Patient In Hospice? No [email or web address] Information not available 03/19/2023 What Is Your Housing Situation Today? I Have Housing [email or web address] Information not available 03/19/2023 Sex: Unknown Functional Status Question Answer Note LastModified by Organizat ion Details LastModified Time Do you use any illicit or recreational drugs? No [email or web address] Information not available 03/19/2023 What is your level of alcohol consumption? None Information not available 03/19/2023 Mental Status None recorded. Family History Relationship Description Onset Age of this Age Resolved Age Notes LastModified by Organization Details LastModified Time Father Diabetes mellitus [email or web address] Not available 03/19 15:11:34 Medical History Condition Response Coronary Artery Disease N Parkinson's Disease N COPD N Depression N Hypothyroidism N A-fib N Diabetes N CHF N Cancer N Stroke N Dementia N Asthma N High Cholesterol N Rheumatoid Arthritis N Pulmonary Embolism N Hypertension N Osteoporosis N Kidney Disease N Gynecological HistoryNo gynecological history recorded. Obstetrics History GPAL:G 0 P 0 0 0 0 Past Encounters Encounter ID Performer Location Encounter Start Date Encounter Closed Date Diagnosis/Indication Diagnosis SNOMED-CT Code Diagnosis ICD10 Code Diagnosis IMO Codes Diagnosis Note [id number] MEENA Arthur [facility] [address] [place] [address] 03/19/2023 15:08:39 03/20/2023 16:20:53 Fatigue 53156654 R53.83 Status of condition: Exacerbati on/Acute on [...] refused to sign AMA form on scene. [facility] was present and witnessed discussion and [...] ID Guarantor Name 03/23/2023 2 [place] [id number] Evangelina Colon [id number] Evangelina Colon 03/23/2023 2 [place]MEDICARE [place]PLACEMENT HMO) [id number] Evangelina I Colon [id number] Evangelina Colon 03/20/2023 1 [place] Evangelina I Colon [id number] Evangelina Colon 04/09/2023 2 [place]IC[place] SUPPLE[place]) [id number] Evangelina Colon [id number] Evangelina Colon 03/18/2023 1 *SELF PAY* Evangelina Colon [id number] Evangelina Colon Notes Date Note Type Note Provider Name [...] for her palpitations and PVCs. MEENA Arthur [facility] [address], [place], [address], [place] [facility] 03/19/2023 19:03:14 OBGyn Episode No OBEpisode recorded.
--- OUTSIDE RECORDS SUMMARY | 2025-07-04 19:14 | XMS_ITS | Encounter Summary ---
Author Organization [facility] Address [address] [place] [address] Phone Care Team Providers Care Pullman Clerk Name Role Phone Kaelyn Vanegas MD Primary Care Provider + Kayli Fulton MD Primary Care Provider + Jean Angel MD Unavailable [phone] Cat Dorsey [facility] Unavailable System, Provider Not In PhD Primary Care Provide r Unavailable Kaelyn Vanegas MD Primary Care Provider + Encounter Details Date Type Department Care Team (Late st Contact Info) Description 11/18/2024 Procedure Pass [facility] [place], [address] [address] Social History Tobacco Use Types Packs/Day Years [...] Contact Info) Description 07/11/2025 12:00 PM EST Telemedicine [facility] Genetics [address] [place] [address] Belle Diamond MD [address] [place] [address] [email or web address] 10/24/2025 9:00 AM EDT Blood Draw Laboratory Services, [address] [place] [address] Jean Angel MD [address] [place] [address] Felicity [address] [place] [address] [email or web address] 10/24/2025 10:00 AM EDT Office Visit [facility], Division of Hematologic Oncology, [address], [address] [place] [address] Jean Angel MD [address] [place] [address] Felicity [address] [place] [address] [email or web address] 12/23/2025 8:30 AM EDT Telemedicine [facility] Neuromuscular Service [address] [facility], [address]th [place] [address] Macy Slade MD, PhD [address] [place] [address] [email or web address] documented as of this encounter Visit Diagnoses Not on filedocumented in this encounter Care Teams Pullman Clerk Relationship Specialty Start Date End Date Kaelyn Vanegas MD PCP - General Internal Medicine 11/04/18 03/06/25 Kayli Fulton MD [address] [place] [address] PCP - General Internal Medicine 03/07/25 06/13/25 System, Provider Not In, PhD [facility] [address] [address] PCP - General 06/14/25 06/16/25 Kaelyn Vanegas MD [address] [place] [address] PCP - General Internal Medicine 06/17/25 Jean Angel MD [address] [place] [address] [facility] [place] [facility] [place] [address] [address] [email or web address] Medical Oncology 03/07/25 Cat Dorsey, [address] [address] [email or web address] Hematology and Oncology 05/02/25 documented as of this encounter Additional Source Comments The information contained in this document represents components of the legal health record. It is not the complete legal health record.[facility]
--- OUTSIDE RECORDS SUMMARY | 2025-07-04 19:14 | XMS_ITS | Clinical Summary ---
Author Organization [facility] Address [address] [address] Phone Care Team Providers Care Painter Helper Name Role Phone Jean Angel MD Unavailable [phone] Cat Dorsey [facility] Unavailable Kaelyn Vanegas MD Primary Care Provider [...] Encounters Date Type Department Care Team Description 06/29/2025 Telephone [facility] [address] [place] [address] Belle Diamond MD Appointment 06/14/2025 Telephone [facility] [address] [place] [address] Bobbi Burks 06/14/2025 Ancillary Orders [facility] [address] [place] [address] Belle Diamond MD 06/14/2025 Ancillary Orders [facility] [address] [place] [address] Belle Diamond MD 06/14/2025 Ancillary Orders [facility] [address] [place] [address] Belle Diamond MD 06/14/2025 Ancillary Orders [facility] [address] [place] [address] Belle Diamond MD 06/14/2025 Ancillary Orders [facility] [address] [place] [address] Belle Diamond MD 06/14/2025 Ancillary Orders [facility] [address] [place] [address] Belle Diamond MD 06/14/2025 Ancillary Orders [facility] [address] [place] [address] Belle Diamond MD 06/13/2025 1:45 PM EST Office Visit [facility] [address] [facility] [place] [address] Jean Angel MD Familial idiopathic pulmonary fibrosis; 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; Other osteoporosis without current pathological fracture 06/03/2025 Transcribe Orders Virtual Department [address] [place] [address] Sandi Castillo, [place] of right breast, unspecified quadrant (Primary Dx); Abnormal finding on breast imaging 05/31/2025 3:30 PM EDT Social Work Social Work Department, [facility] [address] [address] Jean Angel MD [place], Kristy Ana Maria, [facility] 05/19/2025 Documentation [facility] [address] [place] [address] Laura Ortega, RN biopsy recommendation 05/18/2025 2:34 PM EDT - 05/18/2025 11:59 PM EDT Hospital Encounter [address] [address] Sandi Castillo DO Discharge Disposition: Home or Self Care 04/12/2025 Telephone [facility] [address] [facility] [place] [address] Jean Angel MD 04/07/2025 Orders Only [facility], Division of Hematologic Oncology, [facility] [place] [address] [place] [address], 8th [place] [address] Jean Angel MD Familial idiopathic pulmonary fibrosis (Primary Dx); 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; Other osteoporosis without current pathological fracture 11/18/2024 Procedure Pass [address] [address] from Last 3 Months Family History Medical [...] Info) Description 07/11/2025 12:00 PM EST Telemedicine [facility] Genetics 15 [place] [address] Belle Diamond MD [address] [place] [address] [email or web address] 10/24/2025 9:00 AM EDT Blood Draw Laboratory Services, [address], 2[address] [place] [address] Jean Angel MD [address] [place] [address] [email or web address] [facility] 10/24/2025 10:00 AM EDT Office Visit [facility], Division of Hematologic Oncology, [address], [address] [place] [address] Jean Angel MD [address] [place] [address] [email or web address] [facility] 12/23/2025 8:30 AM EDT Telemedicine [facility] Neuromuscular Service [address] [facility], 8th [place] [address] Macy Slade MD, PhD [address] [id number] [place] [address] [email or web address] Health Maintenance Due Date Last Done Comments [...] EST) GLUCOSE 83 70 - 100 mg/dL [facility] UREA N 14 6 - 23 mg/dL [facility] CREATININE 0.66 0.50 - 1.20 mg/dL [facility] eGFR >=60 [facility] Comment: (Abnormal if <60 mL/min/1.73m2 If patient is black, multiply by 1.21) SODIUM 135(A) 136 - 145 mmol/L [facility] POTASSIUM 3.1(A) 3.4 - 5.0 mmol/L [facility] CHLORIDE 100 98 - 107 mmol/L [facility] TOTAL CO2 25 22 - 31 mmol/L [facility] ALT/GPT 9(A) 10 - 50 U/L [facility] AST/GOT 16 10 - 50 U/L [facility] ALK PHOS 60 35 - 130 U/L [facility] AMYLASE 131(A) 28 - 100 U/L [facility] TOT BILI 0.7 0.0 - 1.0 mg/dL [facility] LIPASE 53 13 - 60 U/L [facility] TOT PROT 7.9 6.4 - 8.3 g/dL [facility] ALBUMIN 4.6 3.5 - 5.2 g/dL [facility] CALCIUM 9.4 8.8 - 10.7 mg/dL [facility] CHOLESTEROL 148 140 - 199 mg/dL [facility] TRIGLYCERIDES 33(A) 35 - 150 mg/dL [facility] HDL 64 40 - 100 mg/dL [facility] CLDL 77 50 - 129 mg/dL [facility] VLDL 7 mg/dL [facility] ANION GAP 10 5 - 17 mmol/L [facility] GLOBULIN 3.3 2.2 - 4.2 g/dL [facility] 08/23/2011 5:27 PM EST Comment:BLOOD us River Hernandes MD, PhD LAB BLOOD ORDERABLES Niesha vipin Result [address] [address] from Last 3 Months or Most Recently Relevant to Health Maintenance Insurance Reval[employer] SUPPLEMENT MEDICARE PART A & B [employer] SUPPLEMENT MEDICARE PART A & B [employer] SUPPLEMENT MEDICARE PART A & B [employer] MEDEX SUPPLEMENT MEDICARE PART A & [place] [address] [employer]OSS MEDEX SUPPLEMENT MEDICARE PART A & B [employer] MEDEX SUPPLEMENT MEDICARE PART A & B [employer] MEDEX SUPPLEMENT [facility] Address: [address] [place] [address] MEDICARE PART A & B [employer] MEDEX SUPPLEMENT MEDICARE PART A & B [employer] MEDEX SUPPLEMENT MEDICARE PART A & B Care Teams Painter Helper Relationship Specialty Start Date End Date Kaelyn Vanegas MD [address] [place] [address] PCP - General Internal Medicine 06/17/25 Jean Angel MD [address] [place] [address] [address] [email or web address] Medical Oncology 03/07/25 Cat Dorsey, [address] [address] [email or web address] Principal Ios Developer Hematology and Oncology 05/02/25 Additional Source Comments The information contained in this document represents components of the legal health record. It is not the complete legal health record.[facility]
--- OUTSIDE RECORDS SUMMARY | 2025-07-04 19:14 | XMS_ITS | Clinical Summary ---
Author Organization [address] Address [address] [place] [address] Care Team Providers Care Equipment Man Name Role Phone Kaelyn Vanegas MD Primary Care Provider [phone] Social History Tobacco Use Types Packs/Day Years [...] age to complete this topic Insurance MEDICARE [facility] MEDICARE [facility] MEDICARE BS Care Teams Equipment Man Relationship Specialty Start Date End Date Kaelyn Vanegas MD [address] [address] PCP - General Internal Medicine 06/29/19
--- OUTSIDE RECORDS SUMMARY | 2025-07-04 19:14 | XMS_ITS | Continuity of Care Document ---
Author Organization [facility] [address] [facility] [address] [place] [address] Phone [phone] Care Team Providers Care Carpet Repairer Name Role Phone Kaelyn Vanegas M.D. Care Team Information Rec eiver [phone] Problems Active Problems Provider Date Mallory-Danlos syndrome [...]
--- OUTSIDE RECORDS SUMMARY | 2025-07-04 19:14 | XMS_ITS | Encounter Summary ---
Author Organization [facility] Address [address] [facility] [address] [place] [address] Phone Care Team Providers Care Contact Center Consultant Name Role Phone Kaelyn Vanegas MD Primary Care Provider + Kayli Fulton MD Primary Care Provider + Jean Angel MD Unavailable [phone] Cat Dorsey [facility] Unavailable System, Provider Not In PhD Primary Care Provide r Unavailable Kaelyn Vanegas MD Primary Care Provider + Reason for Referral * Consultation (Within 1 month) - Closed Specialty Diagnoses / Procedures Referred By Angus hu Referred To Contact Gastroenterology Diagnoses Liver disease Kaelyn Vanegas MD Phone: tel: Paul Gill MD, DPHIL Phone: tel: fax: mailto:[email or web address] Referral ID Status Reason Start Date Expiration Date Visits Re quested Visits Authorized [id number] Closed 11/30/2018 12/01/2019 1 1 Encounter Details Date Type Department Care Team (Latest Contact Info) Description 11/30/2018 Transcribe Orders [facility] [address] [place] [address], 5th [place] [address] Kaelyn Vanegas MD [address] [place] [address] Liver disease (Primary Dx) Social History Tobacco [...] Info) Description 07/11/2025 12:00 PM EST Telemedicine [facility] Genetics 15 [place] [address] Belle Diamond MD [address] [place] [address] [email or web address] 10/24/2025 9:00 AM EDT Blood Draw Laboratory Services, [address], [address] [place] [address] Jean Angel MD [address] [place] [address] [email or web address] 10/24/2025 10:00 AM EDT Office Visit [facility], Division of Hematologic Oncology, [address], [address]th [place] [address] Jean Angel MD [address] [place] [address] [address] [email or web address] 12/23/2025 8:30 AM EDT Telemedicine [facility] [address] [facility], 8th [place] [address] Macy Slade MD, PhD [address] [place] [address] [id number] [place] [address] [email or web address] Scheduled Referrals Name Type Priority Associated Diagnoses Order Schedule Ambulatory referral to [facility] (Consult Requests Only) Outpatient Referral Routine Liver disease Ordered: 11/30/2018 documented as of this encounter Visit Diagnoses Diagnosis Liver disease- Primary Unspecified disorder of liver documented in this encounter Care Teams Contact Center Consultant Relationship Specialty Start Date End Date Kaelyn Vanegas MD PCP - General Internal Medicine 11/04/18 03/06/25 Kayli Fulton MD [address] [place] [address] PCP - General Internal Medicine 03/07/25 06/13/25 System, Provider Not In, PhD [address] [address] PCP - General 06/14/25 06/16/25 Kaelyn Vanegas MD [address] [place] [address] PCP - General Internal Medicine 06/17/25 Jean Angel MD [address] [place] [address] [facility] [place] [facility] [place] [address] [address] [email or web address] Medical Oncology 03/07/25 Cat Dorsey, [address] [address] [email or web address] Supervisor Safety Deposit Hematology and Oncology 05/02/25 documented as of this encounter Additional Source Comments The information contained in this document represents components of the legal health record. It is not the complete legal health record.[facility]
--- OUTSIDE RECORDS SUMMARY | 2025-07-04 19:14 | XMS_ITS | Clinical Summary ---
Author Organization [facility] Address [address] [place] [address] Care Team Providers Care Crisis Nurse Name Role Phone Kaelyn Vanegas MD Primary Care Provider [phone] Surgical History Surgery Date Site/Laterality Comments APPENDECTOMY 2006 PROCEDURE: HISTORICAL APPENDECTOMY; COMMENT: complicated with abscess Medical History Medical History Date Comments Anemia DX:Anemia B12 deficiency DX:B12 deficienc y Cervicocranial syndrome DX:Cervi cocranial syndrome Change in consistency of stool D X:Change in consistency of stool Chronic fatigue DX:Chronic fatig ue Chronic generalized pain DX:Smash Fixer sarai generalized pain Depression DX:Depression Dizziness DX:Dizziness Dysautonomia (CMS/HCC V24, CMS/HCC V28) DX:Dysautonomia (HCC) Mallory-Danlos syndrome DX:Mallory -Danlos syndrome Epigastric pain DX:Epigastric pa in Folic acid deficiency DX:Folic a theodore deficiency Gluten intolerance DX:Gluten int olerance Hepatic cyst DX:Hepatic cyst IBS (irritable bowel syndrome) D X:IBS (irritable bowel syndrome) Malnutrition (CMS/HCC V24) DX:Ma lnutrition ([facility]) Mast cell disorder DX:Mast cell disorder Osteoporosis [...] Depression Screening 08/11/2024 COVID-19 Vaccine ( - 2024-2 6 season) 2025 Influenza Vaccine (#1) 2025 RSV [...] complete this topic RSV Immunization Patients Un elam 20 months Aged Out No longer eligible b ased on patient's age to complete this topic Varicella Vaccines Aged Out No longer eligible based on patient's age to complete this topic Care Teams Crisis Nurse Relationship Specialty Start Date End Date Kaelyn Vanegas MD [address] [place] [address] PCP - General 02/18/13
--- OUTSIDE RECORDS SUMMARY | 2025-07-04 19:14 | XMS_ITS | Encounter Summary ---
Author Organization [facility] Address [address] [address] Phone Care Team Providers Care Patrol Inspector Name Role Phone Kaelyn Vanegas MD Primary Care Provider + Kayli Fulton MD Primary Care Provider + Jean Angel MD Unavailable [phone] Cat Dorsey [facility] Unavailable System, Provider Not In PhD Primary Care Provide r Unavailable Kaelyn Vanegas MD Primary Care Provider + Encounter Details Date Type Department Care Team (Late st Contact Info) Description 11/17/2024 Transcribe Orders Virtual Department 30 [place] [address] Sandi Castillo DO [address] [place] [address] Social History Tobacco Use Types Packs/Day Years [...] Info) Description 07/11/2025 12:00 PM EST Telemedicine [facility] Genetics [address] [place] [address] Belle Diamond MD [address] [place] [address] [email or web address] 10/24/2025 9:00 AM EDT Blood Draw Laboratory Services, [address], 2nd [place] [address] Jean Angel MD [address] [place] [address] [place] [address] [place] [address] [email or web address] 10/24/2025 10:00 AM EDT Office Visit [facility], Division of Hematologic Oncology, [address], [address] [place] [address] Jean Angel MD [address] [facility] [place] [address] [place] [address] [email or web address] 12/23/2025 8:30 AM EDT Telemedicine [facility] Neuromuscular Service [address] [facility], 8th [place] [address] Macy Slade MD, PhD [phone] [place] [address] [email or web address] documented as of this encounter Visit Diagnoses Not on filedocumented in this encounter Care Teams Patrol Inspector Relationship Specialty Start Date End Date Kaelyn Vanegas MD PCP - General Internal Medicine 11/04/18 03/06/25 Kayli Fulton MD [address] [place] [address] PCP - General Internal Medicine 03/07/25 06/13/25 System, Provider Not In, PhD Partners [address] [address] PCP - General 06/14/25 06/16/25 Kaelyn Vanegas MD [address] [place] [address] PCP - General Internal Medicine 06/17/25 Jean Angel MD [address] [place] [address] - [place] [address] [address] [email or web address] Medical Oncology 03/07/25 Cat Dorsey, [address] [address] [email or web address] Casing Wringer Operator Hematology and Oncology 05/02/25 documented as of this encounter Additional Source Comments The information contained in this document represents components of the legal health record. It is not the complete legal health record.[facility]
--- OUTSIDE RECORDS SUMMARY | 2025-07-04 19:14 | XMS_ITS | Encounter Summary ---
Author Organization [facility] Address [address] [address] Phone Care Team Providers Care Creosoting Engineer Name Role Phone Jean Angel MD Unavailable [phone] Cat Dorsey [facility] Unavailable Kaelyn Vanegas MD Primary Care Provider + Reason for Visit * Reason Onset Date Comments Appointment 06/29/2025 Encounter Details Date Type Department Care Team (Late st Contact Info) Description 06/29/2025 Telephone [facility] Center for Chest Diseases [address] [place] [address] Belle Diamond MD [address] [place] [address] [email or web address] Appointment Social History Tobacco Use Types Packs/Day Years [...] as of this encounter Progress Notes * Jean Curry - 06/29/2025 3:45 PM EST Patient of Belle Diamond MD Pediatrics Patient called at provider advisement to request provider convert upcoming 07/11 provider appt. To VV due to transportation issues from residence in [place] that day. Please review/advise patient. # [phone] Thank you. Johnathan documented in this encounter Plan of Treatment Upcoming Encounters Date Type Department Care Team (Late st Contact Info) Description 07/11/2025 12:00 PM EST Telemedicine [facility] Genetics 15 [place] [address] Belle Diamond MD [address] [place] [address] [email or web address] 10/24/2025 9:00 AM EDT Blood Draw Laboratory Services, [address], 2nd [place] [address] Jean Angel MD [address] [place] [address] [email or web address] 10/24/2025 10:00 AM EDT Office Visit Center for Leukemia, Division of Hematologic Oncology, [address], 8th [place] [address] Jean Angel MD [address] [place] [address] [address] [email or web address] 12/23/2025 8:30 AM EDT Telemedicine [facility] Neuromuscular Service [address], 8th [place] [address] Macy Slade MD, PhD [address] [facility] [id number] [place] [address] [email or web address] documented as of this encounter Visit Diagnoses Not on filedocumented in this encounter Care Teams Creosoting Engineer Relationship Specialty Start Date End Date Kaelyn Vanegas MD [address] [place] [address] PCP - General Internal Medicine 06/17/25 Jean Angel MD [address] [place] [address] Cancer [place] [facility] [place] [address] [address] [email or web address] Medical Oncology 03/07/25 Cat Dorsey, [address] [address] Yola@[email or web address] E Learning Designer Hematology and Oncology 05/02/25 documented as of this encounter Additional Source Comments The information contained in this document represents components of the legal health record. It is not the complete legal health record.[facility]
== END 2025-07-04 14:19 | disposition home or self-care (01) ==
LOC: HO.HKASLDS 14:18
PROVIDERS: PCP Internal Medicine; Visit Provider Internal Medicine
DX: E46 Unspecified protein-calorie malnutrition (principal)
CPT/HCPCS: 36415; 84590